=== PATIENT | female | born 1930 | race American Indian/Alaskan Native ===

== ENCOUNTER 2016-08-15 15:02 | Emergency (ER) | payer MEDICARE ==
--- NOTE | 2016-08-15 19:19 | Emergency Department Report ---
Addendum entered and electronically signed by GARY FINE PA 08/15/16 23 :45: Blank Doc - Documentation Documentation: pt requested refills on her glaucoma drops, she is nearly out, i refilled both. Original Note: ED Eye Problem HPI - General Chief complaint: Eye Problems Stated complaint: PRESSURE IN EYES/SENT BY DR Time Seen by Provider: 08/15/16 18:48 Source: patient Mode of arrival: Ambulatory Limitations: No Limitations - History of Present Illness Initial comments: 86-year-old female past medical history hypertension, history of glaucoma, presents with complaint of episode of painless vision loss to right eye which occurred last night. Patient states that she took a nap at approximately 3 PM and woke up at approximately 8 PM last night with symptoms of loss of vision in right lower peripheral visual field. Patient states that she did not experience any headache no slurred speech no nausea no vomiting. Patient denies any head trauma whatsoever. Patient states that this lasted between 8 and 10 PM yesterday and then spontaneously resolved. Patient went to her crew chief Dr. Simeon this morning was examined her I and referred her to vascular surgery at [place] for concern of amaurosis fugax. Patient did not want to go to [place] so came to [facility]. Patient awake alert and oriented 3 not in any acute distress accompanied by family. Patient denies any symptoms right now. As per patient's family she seems to be in her usual state of health and behavior. Not occurred to her before. States that she does not have any vision loss at this moment only slightly blurry vision right eye. Eyes any pain or any floaters. Eyes any foreign body sensation in right eye. No recent eye surgeries. Patient states she has had cataract surgery and surgery for glaucoma in the past. States she is using her glaucoma drops consistently. Eyes any discharge from the eye no crusting of the lids chief complaint: vision change Onset/Timin -: days(s) Onset Description: sudden Location: right eye Place: home If Injury: none Eye Symptoms: decreased vision Associated Symptoms: none Treatments Prior to Arrival: other (Patient saw crew chief Dr. Simeon who referred her to vascular Surgery at [place]) - Related Data Home Medications Medication Instructions Recorded Confirmed Last Taken ALBUTEROL Inhaler [ProAir HFA 2 puff PO Q4HR 01/01/16 01/01/16 Unknown Inhaler] Brimonidine/Timolol 0.2-0.5% 1 drops OP Q12H 01/01/16 01/01/16 Unknown [Combigan 0.2-0.5%] LORazepam [Ativan] 0.5 mg PO Q6H PRN 01/01/16 01/01/16 Unknown Potassium Chloride 10 meq PO QDAY 01/01/16 01/01/16 Unknown Ranitidine HCl [Zantac 150 MG TAB] 150 mg PO BID 01/01/16 01/01/16 Unknown metFORMIN [Glucophage] 500 mg PO BID 01/01/16 01/01/16 Unknown Previous Rx's Medication Instructions Recorded Last Taken Type Aspirin EC [Aspirin Enteric Coated 325 mg PO QDAY #30 tablet. 08/15/16 Unknown Rx TAB] Allergies Allergy/AdvReac Type Severity Reaction Status Date / Time shellfish derived Allergy Swelling Verified 08/15/16 15:42 ED Review of Systems ROS: Stated complaint: PRESSURE IN EYES/SENT BY Other details as noted in HPI Constitutional: denies: chills, fever Eyes: as per HPI, vision change (temporary vision loss last night between 8 and 10 PM which spontaneously resolved). denies: eye pain, eye discharge ENT: denies: ear pain, throat pain Respiratory: denies: cough, shortness of breath, wheezing Cardiovascular: denies: chest pain, palpitations Endocrine: no symptoms reported Gastrointestinal: denies: abdominal pain, nausea, diarrhea Genitourinary: denies: urgency, dysuria, discharge Musculoskeletal: denies: back pain, joint swelling, arthralgia Skin: denies: rash, lesions Neurological: denies: headache, weakness, paresthesias Psychiatric: denies: anxiety, depression Hematological/Lymphatic: denies: easy bleeding, easy bruising ED Past Medical Hx - Past Medical History Hx Hypertension: Yes Hx Diabetes: Yes Hx Asthma: Yes Additional medical history: DIVERTICULLITIS - Social History Smoking Status: Never Smoker - Medications Home Medications: Home Medications Medication Instructions Recorded Confirmed Last Taken Type ALBUTEROL Inhaler [ProAir HFA 2 puff PO Q4HR 01/01/16 01/01/16 Unknown History Inhaler] Brimonidine/Timolol 0.2-0.5% 1 drops OP Q12H 01/01/16 01/01/16 Unknown History [Combigan 0.2-0.5%] LORazepam [Ativan] 0.5 mg PO Q6H PRN 01/01/16 01/01/16 Unknown History Potassium Chloride 10 meq PO QDAY 01/01/16 01/01/16 Unknown History Ranitidine HCl [Zantac 150 MG TAB] 150 mg PO BID 01/01/16 01/01/16 Unknown History metFORMIN [Glucophage] 500 mg PO BID 01/01/16 01/01/16 Unknown History Aspirin EC [Aspirin Enteric Coated 325 mg PO QDAY #30 tablet. 08/15/16 Unknown Rx TAB] ED Physical Exam - General Limitations: No Limitations General appearance: alert, in no apparent distress - Head Head exam: Present: atraumatic, normocephalic - Eye Eye exam: Present: normal appearance - Expanded Eye Exam Expanded Eyelids: Normal Inspection: Left Pupils: Regular, Round: Bilateral, Reactive: Bilateral Sclera/Conjunctival: Normal Inspection: Bilateral, Injection: Bilateral Anterior chamber: Normal Inspection: Bilateral Visual acuity (R) = 20/: 100 Visual acuity (L) = 20/: 40 With correction: No IOP (R) in mmH (measured x3 times, 13, 14, 14) IOP (L) in mmH (meaqsured x3 times, 13, 13, 14) IOP measured with: Tonopen - ENT ENT exam: Present: mucous membranes moist - Neck Neck exam: Present: normal inspection - Respiratory Respiratory exam: Present: normal lung sounds bilaterally. Absent: respiratory distress - Cardiovascular Cardiovascular Exam: Present: regular rate, normal rhythm. Absent: systolic murmur, diastolic murmur, rubs, gallop - GI/Abdominal GI/Abdominal exam: Present: soft, normal bowel sounds - Extremities Exam Extremities exam: Present: normal inspection - Back Exam Back exam: Present: normal inspection - Neurological Exam Neurological exam: Present: alert, oriented X3 - Psychiatric Psychiatric exam: Present: normal affect, normal mood - Skin Skin exam: Present: warm, dry, intact, normal color. Absent: rash ED Course Vital Signs 08/15/16 15:42 Temperature 98.7 F Pulse Rate 78 Respiratory 20 Rate Blood Pressure 132/67 O2 Sat by Pulse 98 Oximetry ED Medical Decision Making - Lab Data Result diagrams: 08/15/16 21:10 08/15/16 21:10 - Medical Decision Making A/P: Amaurosis fugax, transient monocular vision loss 1-I discussed case with Dr. Isaacs and Dr. Rahman or guarding my clinical concern for amaurosis fugax. I called Dr. Simeon [phone] and discussed case with him, he is also concerned for AF and told me he had referred pt to [place] vascular surgeon dr. herman for furthe testing. As per both attendings as patient 's vision loss has spontaneously abated and not returned and given patient's age no indication for CTA at this time. Patient already had evaluation by her crew chief Dr. Simeon who had originally referred her to vascular surgery at [facility] with a Dr. Hunt [email or web address]. I advised patient with her family at bedside to follow-up with her original referral as soon as possible for further outpatient workup related to amaurosis fugax. Patient may require carotid artery ultrasounds or MRIs. As per both of my ED attendings no indication for further emergent imaging at this time. 2-patient had normal ESR and CRP. IOP right eye checked x3 14, left eye 13. Noncontrast CAT scan of the head shows no ischemia. Patient does not have any overt clinical symptoms of acute CVA, no slurred speech no upper or lower extremity weakness, and no pronator drift and no facial paresis. Denies any current vision symptoms in her right eye, the vision loss has spontaneously abated and vision loss has not returned since last night. 3-after discussing case with Dr. Rahman I will start patient on daily aspirin 325mg until she can be assessed by outpt neurology and vascular surgery. 5- ABCD2 Score 4 points Per the validation study, 4-5 points: Moderate Risk 2-Day Stroke Risk: 4.1% 7- Day Stroke Risk: 5.9% 90-Day Stroke Risk: 9.8% 4-I reinforced importance of outpatient ophthalmology, neurology and vascular surgery follow-up to patient and patient's family to avoid any permanent vision loss and some mitigate risk of CVA Critical care attestation.: If time is entered above; I have spent that time in minutes in the direct care of this critically ill patient, excluding procedure time. ED Disposition Clinical Impression: Amaurosis fugax of right eye Transient monocular blindness Qualifiers: Laterality: right Qualified Code(s): H53.121 - Transient visual loss, right eye Disposition: DISCHARGED TO HOME OR SELFCARE Is pt being admited?: No Does the pt Need Aspirin: Yes Condition: Stable Instructions: Transient Ischemic Attack (ED) Prescriptions: Aspirin EC [Aspirin Enteric Coated TAB] 325 mg PO QDAY #30 tablet.dr Referrals: EDILSON SIMEON MD [Primary Care Provider] - 3-5 Days ARELY ADEN MD [Staff Physician] - 3-5 Days KRUPA EDWARDS MD [Staff Physician] - 3-5 Days Forms: Accompanied Note Time of Disposition: 23:19
[2016-08-15 21:42] LABS: Basophils % (Auto) 0.4 % (0.0-1.8); Eosinophils % (Auto) 1.7 % (0.0-4.3); Hematocrit 38.2 % (30.3-42.9); Hemoglobin 12.3 gm/dl (10.1-14.3); Mean Corpuscular HGB Conc 32 % (30-34); Mean Corpuscular Hemoglobin 27 pg (28-32); Mean Corpuscular Volume 84 fl (79-97); Platelet Count 237 K/mm3 (140-440); Red Blood Count 4.53 M/mm3 (3.65-5.03); Red Cell Distribution Width 15.8 % (13.2-15.2); White Blood Count 6.1 K/mm3 (4.5-11.0)
[2016-08-15 21:54] LABS: INR 1.01 (0.87-1.13)
--- NOTE | 2016-08-15 22:04 | Cat Scan Report ---
FINAL REPORT EXAM: CT HEAD/BRAIN WO CON HISTORY: right sided temporary vision loss 2 hours, amoris TECHNIQUE: CT head without contrast PRIORS: None. FINDINGS: No acute intra-axial or extra-axial hemorrhage is identified. There is no evidence of midline shift or mass effect. The ventricles and sulci are within normal limits. Cain-white matter differentiation is intact. No acute parenchymal abnormalities seen. Bony calvarium is grossly intact. Visualized portions of the mastoids and paranasal sinuses are unremarkable. IMPRESSION: Negative CT head
[2016-08-15 22:25] LABS: Erythrocyte Sedimentation Rate 36 mm/Hr (0-20)
[2016-08-15 23:20] LABS: Alanine Aminotransferase 10 units/L (7-56); Albumin/Globulin Ratio 0.9 %; Alkaline Phosphatase 89 units/L (35-129); Anion Gap 21 mmol/L; BUN/Creatinine Ratio 18.33; Bilirubin,Total 0.3 mg/dL (0.1-1.2); Blood Urea Nitrogen 11 mg/dL (7-17); Calcium 9.4 mg/dL (8.4-10.2); Carbon Dioxide 24 mmol/L (22-30); Chloride 101.7 mmol/L (98-107); Glucose 134 mg/dL (65-100); Potassium 3.6 mmol/L (3.6-5.0); Sodium 143 mmol/L (137-145); Total Protein 8.3 g/dL (6.3-8.2)
[2016-08-15] MEDS ORDERED: BABY ASPIRIN PO ONE (23:22)
[2016-08-15 23:29] LABS: Bilirubin,Direct < 0.2 mg/dL (0-0.2); Bilirubin,Indirect 0.1 mg/dL
[2016-08-15 23:57] VITALS: BP 130/77
== END 2016-08-16 | disposition home or self-care (01) ==
LOC: ED 15:02
DX: H53.121 Transient visual loss, right eye (principal); G45.3 Amaurosis fugax; I10 Essential (primary) hypertension; J45.909 Unspecified asthma, uncomplicated; E11.9 Type 2 diabetes mellitus without complications; Z79.82 Long term (current) use of aspirin; Z91.013 Allergy to seafood
CPT/HCPCS: 36415; 70450; 80048; 80074; 82550; 85025; 85610; 85652; 86140

== ENCOUNTER 2016-08-20 03:29 | Inpatient (IN) | payer MEDICARE ==
[2016-08-20] MEDS ORDERED: NACL 0.9% 1000 ML 1,000 ML IV ONE (03:45)
[2016-08-20 05:22] LABS: Basophils % (Auto) 0.4 % (0.0-1.8); Eosinophils % (Auto) 1.5 % (0.0-4.3); Hematocrit 34.2 % (30.3-42.9); Hemoglobin 11.2 gm/dl (10.1-14.3); Mean Corpuscular HGB Conc 33 % (30-34); Mean Corpuscular Hemoglobin 27 pg (28-32); Mean Corpuscular Volume 83 fl (79-97); Platelet Count 205 K/mm3 (140-440); Red Blood Count 4.12 M/mm3 (3.65-5.03); White Blood Count 5.8 K/mm3 (4.5-11.0)
[2016-08-20 05:35] LABS: INR 1.05 (0.87-1.13)
[2016-08-20 05:36] LABS: Partial Thromboplastin Time 26.4 Sec. (24.2-36.6)
[2016-08-20 05:41] LABS: Alanine Aminotransferase 9 units/L (7-56); Albumin 3.9 g/dL (3.9-5); Albumin/Globulin Ratio 1.1 %; Alkaline Phosphatase 96 units/L (35-129); Bilirubin,Total 0.2 mg/dL (0.1-1.2); Blood Urea Nitrogen 12 mg/dL (7-17); Calcium 8.9 mg/dL (8.4-10.2); Carbon Dioxide 26 mmol/L (22-30); Glucose 154 mg/dL (65-100); Lipase 25 units/L (13-60); Potassium 3.8 mmol/L (3.6-5.0); Sodium 145 mmol/L (137-145); Total Protein 7.3 g/dL (6.3-8.2)
[2016-08-20 05:42] LABS: Anion Gap 19 mmol/L
[2016-08-20 06:26] LABS: Bacteria,Urine 1+ /HPF (Negative); Bilirubin,Urine NEG (Negative); Blood,Urine SM (Negative); Ketones,Urine NEG (Negative); Leukocyte Esterase,Urine NEG (Negative); Mucus,Urine 2+ /HPF; Nitrite,Urine NEG (Negative); Protein,Urine <15 mg/dL mg/dL (Negative); Urobilinogen,Urine < 2.0 mg/dL (<2.0)
--- NOTE | 2016-08-20 09:00 | Emergency Department Report ---
HPI - General Chief Complaint: GI Bleed Time Seen by Provider: 08/20/16 08:51 - HPI HPI: Chief complaint: Rectal bleeding HPI: Patient is a 86-year-old female with a history of diverticular rectal bleeding in the past who has been having episodes of amaurosis fugax and was placed on aspirin. Patient took a regular strength coated aspirin yesterday for the first time and woke up at 2:00 this morning with rectal bleeding. Patient had 2 episodes of bleeding at home and has had 5 episodes here. Patient does not have any dizziness or abdominal pain. Mode of arrival: private car Source: Patient ,old chart ,family member Began: 2 am Duration: see above Context: see above Quality:pain free Severity: 0 out of 10 Improved with: nothing Worsened with: nothing Associated signs and symptoms:see above ED Past Medical Hx - Past Medical History Hx Hypertension: Yes Hx Diabetes: Yes Hx Asthma: Yes Additional medical history: DIVERTICULLITIS rectal bleeding - Surgical History Past Surgical History?: No - Social History Smoking Status: Former Smoker Substance Use Type: None - Medications Home Medications: Home Medications Medication Instructions Recorded Confirmed Last Taken Type ALBUTEROL Inhaler [ProAir HFA 2 puff PO Q4HR 01/01/16 01/01/16 Unknown History Inhaler] LORazepam [Ativan] 0.5 mg PO Q6H PRN 01/01/16 01/01/16 Unknown History Potassium Chloride 10 meq PO QDAY 01/01/16 01/01/16 Unknown History Ranitidine HCl [Zantac 150 MG TAB] 150 mg PO BID 01/01/16 01/01/16 Unknown History metFORMIN [Glucophage] 500 mg PO BID 01/01/16 01/01/16 Unknown History Aspirin EC [Aspirin Enteric Coated 325 mg PO QDAY #30 tablet. 08/15/16 Unknown Rx TAB] Brimonidine/Timolol 0.2-0.5% 1 drops OP Q12H #1 bottle 08/15/16 Unknown Rx [Combigan 0.2-0.5%] Latanoprost 0.005% [Xalatan 0.005%] 1 drops OU QHS #1 bottle 08/15/16 Unknown Rx ED Review of Systems ROS: Stated complaint: RECTAL BLEED Other details as noted in HPI ROS Constitutional: No fever ENT: No uri symptoms Cardiovascular: No chest pain Respiratory: No sob or cough GI: No nausea vomiting or diarrhea : No dysuria frequency or urgency, Skin: No rash Neuro: Patient has had several episodes of transient monocular blindness in each eye. Under the care of an roll table operator and awaiting further testing. Currently no blindness or neurologic deficit. Psych: No depression Kenneth/lymph: No edema Physical Exam - Physical Exam Vital Signs: Vital Signs 08/20/16 08/20/16 03:33 08:28 Temperature 97.9 F Pulse Rate 95 H Respiratory 18 Rate Blood Pressure 134/74 [Left] O2 Sat by Pulse 95 98 Oximetry Physical Exam: GENERAL: The patient is well-developed well-nourished . HEENT: Normocephalic. Atraumatic. Extraocular motions are intact. Patient has moist mucous membranes. NECK: Supple. No meningitic signs are noted. There is no adenopathy noted. CHEST/LUNGS: Clear to auscultation. There is no respiratory distress noted. HEART/CARDIOVASCULAR: Regular. There is no tachycardia. There is no gallop rub or murmur. ABDOMEN: Abdomen is soft, nontender. Patient has normal bowel sounds. There is no abdominal distention. Bright red blood per rectum. SKIN: There is no rash. There is no edema. There is no diaphoresis. NEURO: The patient is awake, alert, and oriented. The patient is cooperative. The patient has no focal neurologic deficits. The patient has normal speech. MUSCULOSKELETAL: There is no tenderness or deformity. There is no limitation range of motion. There is no evidence of acute injury. ED Course Vital Signs 08/20/16 08/20/16 03:33 08:28 Temperature 97.9 F Pulse Rate 95 H Respiratory 18 Rate Blood Pressure 134/74 [Left] O2 Sat by Pulse 95 98 Oximetry - Reevaluation(s) Reevaluation #1: 08/20/16 09:04 Patient will be admitted to the hospitalist with consultation with GI. Reevaluation #2: 08/20/16 09:[address] Ac Tejeda who will consult on the patient. ED Medical Decision Making - Lab Data Result diagrams: 08/20/16 04:47 08/20/16 04:47 Laboratory Tests 08/20/16 08/20/16 04:47 Unknown PT 13.6 INR 1.05 APTT 26.4 Ur Leukocyte Esterase Neg Urine WBC (Auto) 3.0 Urine RBC (Auto) 1.0 U Epithel Cells (Auto) 22.0 H Urine Bacteria (Auto) 1+ Hyaline Casts 56 Urine Mucus 2+ - EKG Data -: EKG Interpreted by Me EKG shows normal: sinus rhythm Rate: normal (66) - EKG Data When compared to previous EKG there are: no significant change Interpretation: normal EKG Critical care attestation.: If time is entered above; I have spent that time in minutes in the direct care of this critically ill patient, excluding procedure time. ED Disposition Clinical Impression: Lower GI bleed Disposition: OP ADMITTED IP TO THIS HOSP Is pt being admited?: Yes Does the pt Need Aspirin: No Condition: Fair Forms: Accompanied Note Time of Disposition: 09:08 (admit to the hospitalist)
--- NOTE | 2016-08-20 09:27 | Admit Criteria Form ---
Admission Criteria Documentation: GASTROINTESTINAL BLEEDING, LOWER Clinical Indications for Admission to Inpatient Care ( Place 'X' for any and all applicable criteria): Admission is indicated for ANY ONE of the following(1)(2)(3)(4)(5): [ X]I. Active gross bleeding per rectum [ ]II. Inpatient admission required rather than observation care (Also use Gastrointestinal Bleeding, Lower: Observation Care as appropriate) because of ANY ONE of the following: [ ]a) Hemodynamic instability that is severe or persistent [ ]b) Anemia requiring inpatient admission as indicated by ALL of the following: [ ]1) Presence of significant clinical finding indicated by ANY ONE of the following: [ ]A. Tachycardia for age [ ]B. Orthostatic vital sign changes [ ]C. Cognitive impairment [ ]D. Heart failure [ ]E. Chest pain [ ]F. Exertional dyspnea [ ]G. Other findings suggesting inadequate perfusion (eg, peripheral or myocardial ischemia, end organ dysfunction) [ ]2) Initial (eg, emergency department, observation care) treatment with transfusion or volume replacement is judged inappropriate (due to severity of the finding) or has been ineffective [ ]c) Severe pain requiring acute inpatient management [ ]d) Absent bowel sounds with complete ileus [ ]e) Signs of intestinal obstruction or peritonitis [A] [ ]f) High-risk low platelet count [ ]g) Severe electrolyte abnormalities requiring inpatient care [ ]h) Acute renal failure [ ]i) High fever or infection requiring inpatient admission as indicated by ANY ONE of the following(8)(9): [ ]1) Appropriate outpatient or observation care antimicrobial treatment unavailable, not effective, or not feasible Documented bacteremia [ ]2) Documented bacteremia [ ]3) Temperature greater than 104.9 degrees F ( 40.5 degrees C) (oral) [ ]4) Temperature greater than 103.1 degrees F ( 39.5 degrees C) (oral) or less than 96.8 degrees F (36 degrees C) (rectal) that does not respond to all emergency treatment measures [ ]j) IV fluid to replace significant ongoing losses ( greater than 3 L/m2 per day) [ ]k) Immediate inpatient surgery needed [ ]l) Parenteral nutrition regimen that must be implemented on inpatient basis [ ]m) Other condition, treatment or monitoring requiring inpatient admission [ ]III. Unstable comorbid illness (renal, hepatic, pulmonary, hematologic, neurologic, or cardiac) [ ]IV. Failure to control bleeding after colonoscopy [ ]V. Coagulopathy [ ]. Suspected or known ischemic colitis(6) [ ]VII. Previous aortic graft placement or known aortic aneurysm Extended stay beyond goal length of stay may be needed for(3)(4)(28): [ ]a) Emergency surgery [ ]b) Coagulation abnormalities(26) [ ]c) Recurrent or persistent bleeding, continued vital sign instability(27)( 28) [ ]d) Active comorbidities (eg, renal insufficiency, heart failure, pre- existing liver disease) The original [employer] content created by [employer] has been revised. The portions of the content which have been revised are identified through the use of italic text or in bold, and [facility] has neither reviewed nor approved the modified material. All other unmodified content is copyright [facility] [employer]. Please see references footnoted in the original [employer] edition 2016 Admission Criteria Met: Yes
[2016-08-20] MEDS ORDERED: D50W (25GM) IV PRN (10:03)
[2016-08-20] MEDS ORDERED: ATIVAN PO PRN (10:11)
--- NOTE | 2016-08-20 10:40 | Gastroenterology Consultation ---
History of Present Illness - Reason for Consult Consult date: 08/20/16 LGI bleeding Requesting physician: HANANE ARCOS - History of Present Illness The patient is an 86-year-old female with a history of prior lower GI bleeding approximately 8 or 9 months ago at which time she was hospitalized here. She reports having diverticulosis found by colonoscopy but had persistent bleeding which required tempted therapeutic angiography. Patient had stopped by the time of angiography and did not require embolization nor subsequent surgery. She had a repeat bleeding event 2 months later for which she was hospitalized in [place]. He was managed conservatively. Recently she developed amaurosis fugax and was started on full dose aspirin therapy last week. She began passing sizable amounts of bright red blood and clots approximately 2 AM today. He denies any abdominal pain nausea vomiting or any fever. Past History Past Medical History: cancer (history of remote left breast cancer for which she underwent lumpectomy and radiation therapy), diabetes, hypertension, other ( recent amaurosis fugax) Past Surgical History: cholecystectomy, hysterectomy Social history: lives with family. denies: smoking, alcohol abuse Family history: no significant family history Medications and Allergies Allergies Allergy/AdvReac Type Severity Reaction Status Date / Time shellfish derived Allergy Swelling Verified 08/15/16 15:42 Home Medications Medication Instructions Recorded Confirmed Last Taken Type ALBUTEROL Inhaler [ProAir HFA 2 puff PO Q4HR 01/01/16 08/20/16 08/19/16 History Inhaler] LORazepam [Ativan] 0.5 mg PO Q6H PRN 01/01/16 08/20/16 08/19/16 History Potassium Chloride 10 meq PO QDAY 01/01/16 08/20/16 08/19/16 History Ranitidine HCl [Zantac 150 MG TAB] 150 mg PO BID 01/01/16 08/20/16 08/19/16 History metFORMIN [Glucophage] 500 mg PO BID 01/01/16 08/20/16 08/19/16 History Aspirin EC [Aspirin Enteric Coated 325 mg PO QDAY #30 tablet. 08/15/1608/19/16 Rx TAB] Brimonidine/Timolol 0.2-0.5% 1 drops OP Q12H #1 bottle 08/15/16 08/20/16 Rx [Combigan 0.2-0.5%] Latanoprost 0.005% [Xalatan 0.005%] 1 drops OU QHS #1 bottle 08/15/16 08/20/16 08/19/16 Rx Glimepiride [Amaryl] 2 mg PO QAM 08/20/16 08/20/16 08/19/16 History amLODIPine [Norvasc] 5 mg PO DAILY 08/20/16 08/20/16 08/19/16 History Active Meds: Active Medications Albuterol (Proventil) 2.5 mg IH Q4HRT [facility] Amlodipine Besylate (Norvasc) 5 mg PO DAILY [facility] Dextrose (D50w (25gm)) 50 ml IV PRN PRN PRN Reason: Hypoglycemia Insulin Aspart (Novolog) 0 units SUB-Q Q4HR [facility] PRN Reason: Protocol Lorazepam (Ativan) 0.5 mg PO Q6H PRN PRN Reason: Anxiety Pantoprazole Sodium (Protonix) 40 mg IV QDAY [facility] Review of Systems - Review of Systems Constitutional: no weight loss, no weight gain, no fever, no chills Eyes: no change in vision Ears, Nose, Throat: no decreased hearing, no difficulty swallowing, no epistaxis Breasts: deferred Cardiovascular: no chest pain, no edema, no rapid/irregular heart beat, no shortness of breath Respiratory: no cough, no shortness of breath, no wheezing, no home oxygen Gastrointestinal: hematochezia, no abdominal pain, no nausea, no vomiting, no diarrhea, no constipation, no hematemesis, no heartburn Rectal: no pain Female Genitourinary: deferred Musculoskeletal: no gait dysfunction, no joint pain, no muscle pain Integumentary: no rash, no pruritis, no jaundice Neurological: no head injury, no paralysis Psychiatric: no anxiety, no memory loss, no change in sleep habits, no change in appetite, no depression Endocrine: no cold intolerance, no heat intolerance Hematologic/Lymphatic: no easy bruising, no easy bleeding Allergic/Immunologic: no wheezing Exam - Constitutional Vital Signs: Temp Pulse Resp BP Pulse Ox 97.9 F 95 H 18 134/74 98 08/20/16 03:33 08/20/16 08:28 08/20/16 08:28 08/20/16 08:28 08/20/16 08:28 General appearance: no acute distress, well-nourished - EENT Eyes: PERRL ENT: hearing intact, clear oral mucosa, dentition normal - Neck Neck: supple, normal ROM, no masses or JVD - Respiratory Respiratory effort: normal Respiratory: bilateral: CTA - Breasts Breasts: deferred - Cardiovascular Rhythm: regular Heart Sounds: Present: S1 & S2. Absent: gallop, rub Extremities: pulses intact, No edema, normal color, Full ROM - Gastrointestinal General gastrointestinal: Present: soft, non-tender, non-distended, normal bowel sounds. Absent: hepatomegaly, splenomegaly, mass Rectal Exam: deferred - Genitourinary Female Genitourinary: deferred - Integumentary Integumentary: Present: clear, warm, dry - Neurologic Neurological: alert and oriented x3 - Labs CBC & Chem 7: 08/20/16 04:47 08/20/16 04:47 Lab Results: Laboratory Results - last 24 hr 08/20/16 08/20/16 08/20/16 04:47 04:47 04:47 WBC 5.8 RBC 4.12 Hgb 11.2 Hct 34.2 MCV 83 MCH 27 L MCHC 33 RDW 16.0 H Plt Count 205 Lymph % (Auto) 25.1 [place] % (Auto) 7.3 Eos % (Auto) 1.5 Baso % (Auto) 0.4 Lymph # 1.5 [place] # 0.4 Eos # 0.1 Baso # 0.0 Seg Neutrophils % 65.7 Seg Neutrophils # 3.8 PT 13.6 INR 1.05 APTT 26.4 Sodium 145 Potassium 3.8 Chloride 104.0 Carbon Dioxide 26 Anion Gap 19 BUN 12 Creatinine 0.8 Estimated GFR > 60 BUN/Creatinine Ratio 15.00 Glucose 154 H Calcium 8.9 Total Bilirubin 0.2 AST 14 ALT 9 Alkaline Phosphatase 96 Total Protein 7.3 Albumin 3.9 Albumin/Globulin Ratio 1.1 Lipase 25 Urine Color Urine Turbidity Urine pH Ur Specific [place] Urine Protein Urine Glucose (UA) Urine Ketones Urine Blood Urine Nitrite Urine Bilirubin Urine Urobilinogen Ur Leukocyte Esterase Urine WBC (Auto) Urine RBC (Auto) U Epithel Cells (Auto) Urine Bacteria (Auto) Hyaline Casts Urine Mucus Blood Type Antibody Screen 08/20/16 08/20/16 04:47 Unknown WBC RBC Hgb Hct MCV MCH MCHC RDW Plt Count Lymph % (Auto) [place] % (Auto) Eos % (Auto) Baso % (Auto) Lymph # [place] # Eos # Baso # Seg Neutrophils % Seg Neutrophils # PT INR APTT Sodium Potassium Chloride Carbon Dioxide Anion Gap BUN Creatinine Estimated GFR BUN/Creatinine Ratio Glucose Calcium Total Bilirubin AST ALT Alkaline Phosphatase Total Protein Albumin Albumin/Globulin Ratio Lipase Urine Color Yellow Urine Turbidity Slightly-cloudy Urine pH 5.0 Ur Specific [place] 1.020 Urine Protein <15 mg/dl Urine Glucose (UA) Neg Urine Ketones Neg Urine Blood Sm Urine Nitrite Neg Urine Bilirubin Neg Urine Urobilinogen < 2.0 Ur Leukocyte Esterase Neg Urine WBC (Auto) 3.0 Urine RBC (Auto) 1.0 U Epithel Cells (Auto) 22.0 H Urine Bacteria (Auto) 1+ Hyaline Casts 56 Urine Mucus 2+ Blood Type AB POSITIVE Antibody Screen Negative Assessment and Plan - Patient Problems (1) Lower GI bleed Current Visit: Yes Status: Acute Plan to address problem: Presently she is hemodynamically stable and is likely had a recurrent diverticular bleed. Initially, conservative management will be pursued given a known diagnosis. If bleeding should persist she will need consideration of a bleeding scan and surgical consultation and consideration of interventional radiology consultation for possible embolization. Thank you for asking me to evaluate Mrs. Suggs and participate in her care (2) Amaurosis fugax of right eye Current Visit: No Status: Acute (3) Full code status Current Visit: No Status: Acute (4) Diabetes mellitus type 2 in nonobese Current Visit: No Status: Chronic (5) Diverticulosis Current Visit: No Status: Chronic (6) HTN (hypertension) Current Visit: No Status: Chronic
[2016-08-20 11:21] LABS: Alanine Aminotransferase 9 units/L (7-56); Albumin 3.8 g/dL (3.9-5); Albumin/Globulin Ratio 1.1 %; Alkaline Phosphatase 90 units/L (35-129); BUN/Creatinine Ratio 17.77; Bilirubin,Total 0.4 mg/dL (0.1-1.2); Blood Urea Nitrogen 16 mg/dL (7-17); Calcium 8.7 mg/dL (8.4-10.2); Carbon Dioxide 24 mmol/L (22-30); Chloride 104.2 mmol/L (98-107); Glucose 152 mg/dL (65-100); Sodium 144 mmol/L (137-145); Total Protein 7.3 g/dL (6.3-8.2)
[2016-08-20] MEDS ORDERED: PROTONIX IV ONE (11:27)
[2016-08-20 11:28] LABS: Anion Gap 20 mmol/L
[2016-08-20] MEDS: NORVASC PO SCH (11:35)
[2016-08-20] MEDS: PROTONIX IV SCH (11:36)
[2016-08-20] MEDS ORDERED: PROAIR IH SCH (14:00)
[2016-08-20] MEDS: NOVOLOG SUB-Q SCH ×4 (14:00→22:11)
[2016-08-20 14:18] LABS: Hematocrit 28.4 % (30.3-42.9); Hemoglobin 9.3 gm/dl (10.1-14.3)
[2016-08-20] MEDS ORDERED: NACL 0.9% 500 ML 500 ML IV ONE (15:40)
--- NOTE | 2016-08-20 15:56 | History and Physical Report ---
History of Present Illness Date of examination: 08/20/16 Date of admission: 08/20/16 10:03 Chief complaint: Passing of bright red blood per rectum History of present illness: Patient is an 86-year-old lady who has a history of diverticular bleeding in 8- 9 months ago. Was hospitalized here and transfused with 9 units of blood. Angiography was done, however there was no embolization as bleeding had stopped. She stated that she had a colonoscopy following which she was diagnosed with diverticulosis. Two months ago, patient was in [place] and had another episode of diverticular bleed. Was managed conservatively. On general 2016, patient was diagnosed with amaurosis fugax after presented emergency department with sudden partial loss of vision on the right eye. Ophthalmology was consulted at [place] who suggested commencing the patient on an aspirin and to follow up with him. Patient was commenced on full dose aspirin therapy. At about 2 AM today patient started passing sizable amount of bright red blood per rectum. Nauseated but denies any vomiting or abdominal pain. No fever. In the emergency department patient had additional 4 bloody bowel movements. GI consult was obtained. Admission was requested. Patient remains hemodynamically stable at time of this evaluation. Hemoglobin was 11.2 with a pulse rate of 64 Past History Past Medical History: cancer (history of remote left breast cancer for which she underwent lumpectomy and radiation therapy), diabetes, hypertension, other ( recent amaurosis fugax) Past Surgical History: cholecystectomy, hysterectomy Social history: lives with family. denies: smoking, alcohol abuse Family history: no significant family history Medications and Allergies Allergies Allergy/AdvReac Type Severity Reaction Status Date / Time shellfish derived Allergy Swelling Verified 08/15/16 15:42 Home Medications Medication Instructions Recorded Confirmed Last Taken Type ALBUTEROL Inhaler [ProAir HFA 2 puff PO Q4HR 01/01/16 08/20/16 08/19/16 History Inhaler] LORazepam [Ativan] 0.5 mg PO Q6H PRN 01/01/16 08/20/16 08/19/16 History Potassium Chloride 10 meq PO QDAY 01/01/16 08/20/16 08/19/16 History Ranitidine HCl [Zantac 150 MG TAB] 150 mg PO BID 01/01/16 08/20/16 08/19/16 History metFORMIN [Glucophage] 500 mg PO BID 01/01/16 08/20/16 08/19/16 History Aspirin EC [Aspirin Enteric Coated 325 mg PO QDAY #30 tablet. 08/15/1608/19/16 Rx TAB] Brimonidine/Timolol 0.2-0.5% 1 drops OP Q12H #1 bottle 08/15/16 08/20/16 Rx [Combigan 0.2-0.5%] Latanoprost 0.005% [Xalatan 0.005%] 1 drops OU QHS #1 bottle 08/15/16 08/20/16 08/19/16 Rx Glimepiride [Amaryl] 2 mg PO QAM 08/20/16 08/20/16 08/19/16 History amLODIPine [Norvasc] 5 mg PO DAILY 08/20/16 08/20/16 08/19/16 History Active Meds: Active Medications Albuterol (Proventil) 2.5 mg IH Q4HRT [facility] Amlodipine Besylate (Norvasc) 5 mg PO DAILY [facility] Last Admin: 08/20/16 11:35 Dose: Not Given Dextrose (D50w (25gm)) 50 ml IV PRN PRN PRN Reason: Hypoglycemia Dextrose/Sodium Chloride (D5/0.45ns) 1,000 mls @ 100 mls/hr IV DIRECT [facility] Insulin Aspart (Novolog) 0 units SUB-Q Q4HR [facility] PRN Reason: Protocol Lorazepam (Ativan) 0.5 mg PO Q6H PRN PRN Reason: Anxiety Pantoprazole Sodium (Protonix) 40 mg IV QDAY [facility] Last Admin: 08/20/16 11:36 Dose: 40 mg Review of system Constitutional: Well Nouridhed and Well developed. Head: NC/ AT Eyes: Denies any visual impairments. No discharge from the eyes Nose: Denies any rhinorrhea or epistaxis Throats: Denies any post nasal drainage. Ears: Denies any hearing deficits Cardiovascular system: Denies any chest pain, shortness of breath, orthopnea, paroxysmal nocturnal dyspnea, or palpitation. Respiratory system: Denies any cough, difficulty breathing, wheezing, pleuritic chest pain, Gastrointestinal system: Denies any abdominal pain, nausea vomiting, hematemesis or melena. Neurological system: Denies any headache, slurred speech, facial droop, lateralizing weakness Genitalia system: Denies any dysuria, urinary frequency or urgency, urethral discharge Skin: No rashes, hyperpigmented spots. Hematological: Denies any cervical tenderness hemorrhages or petechia. Immunological: Denies any multiple septic spots, Lymphatic: Denies any generalized lymphadenopathy. Endocrine: Denies any polyuria, polydipsia, polyphagia. No heat or cold intolerance. Exam - Constitutional Vitals: Temp Pulse Resp BP Pulse Ox 98.0 F 64 16 120/59 99 08/20/16 12:00 08/20/16 12:53 08/20/16 11:36 08/20/16 12:00 08/20/16 11:36 General appearance: Present: no acute distress, well-nourished, other ( conjunctival pallor) - EENT Eyes: Present: PERRL ENT: hearing intact, clear oral mucosa - Neck Neck: Present: supple, normal ROM - Respiratory Respiratory effort: normal Respiratory: bilateral: CTA - Cardiovascular Heart Sounds: Present: S1 & S2. Absent: rub, click - Extremities Extremities: pulses symmetrical, No edema Peripheral Pulses: within normal limits - Abdominal General gastrointestinal: Present: soft, non-tender, non-distended, normal bowel sounds Female genitourinary: Present: normal - Integumentary Integumentary: Present: clear, warm, dry - Musculoskeletal Musculoskeletal: gait normal, strength equal bilaterally - Psychiatric Psychiatric: appropriate mood/affect, intact judgment & insight - Neurologic Neurologic: CNII-XII intact, moves all extremities Results - Labs CBC & Chem 7: 08/20/16 14:03 08/20/16 10:25 Labs: Abnormal lab results 08/20/16 08/20/16 08/20/16 Range/Units 10:25 10:25 12:19 Hgb (10.1-14.3) gm/dl Hct (30.3-42.9) % Glucose 152 H (65-100) mg/dL POC Glucose 135 H (70-105) Hemoglobin A1c 7.2 H (4-6) % Albumin 3.8 L (3.9-5) g/dL U Epithel Cells (Auto) (0-13.0) /HPF 08/20/16 08/20/16 Range/Units 14:03 Unknown Hgb 9.3 L (10.1-14.3) gm/dl Hct 28.4 L (30.3-42.9) % Glucose (65-100) mg/dL POC Glucose (70-105) Hemoglobin A1c (4-6) % Albumin (3.9-5) g/dL U Epithel Cells (Auto) 22.0 H (0-13.0) /HPF - Imaging and Cardiology EKG: report reviewed, image reviewed Assessment and Plan - Patient Problems (1) Lower GI bleed Diagnosis Date: 08/20/16 Current Visit: Yes Status: Acute Plan to address problem: Patient admitted to telemetry as she is hemodynamically stable. Will obtain serial H&H. Commence patient on IV Protonix. Check consult will be obtained. Patient had a similar compliance. Type and screen 3 units of packed red blood cell. Transfuse if hemoglobin is less than 9. Patient will placed on nothing by mouth and IV fluid. (2) Anemia due to GI blood loss Diagnosis Date: 08/20/16 Current Visit: Yes Status: Acute Plan to address problem: Serial H&H, type and crossmatch 3 units of packed red blood cell, transfuse if hemoglobin is less than 9. 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 Consistent carbohydrate diet when patient commenced oral feeding (4) Amaurosis fugax of right eye Diagnosis Date: 08/20/16 Current Visit: No Status: Acute Plan to address problem: We will hold onto. For now. Closely monitor patient's condition. (5) DVT prophylaxis Diagnosis Date: 08/20/16 Current Visit: No Status: Acute Plan to address problem: DVT prophylaxis: SCDs only. We'll avoid anticoagulation as patient is having active GI bleeding Spent 31 minutes in direct patient care. Patient remains full code. Discussed my With the patient and her daughter was at bedside during this admission process. Reviewed previous records as well as current laboratory data
[2016-08-20] MEDS: D5/0.45NS 1,000 ML IV SCH (16:06)
[2016-08-20] MEDS: PROVENTIL IH SCH ×3 (16:07→20:46)
[2016-08-21 01:03] LABS: Hematocrit 24.8 % (30.3-42.9); Hemoglobin 8.1 gm/dl (10.1-14.3)
[2016-08-21] MEDS: NOVOLOG SUB-Q SCH ×4 (02:53→18:32)
[2016-08-21] MEDS: D5/0.45NS 1,000 ML IV SCH (06:39)
[2016-08-21] MEDS: PROVENTIL IH SCH ×6 (08:31→21:32)
[2016-08-21 09:53] LABS: Hematocrit 21.5 % (30.3-42.9)
[2016-08-21 10:39] LABS: Albumin 2.3 g/dL (3.9-5); Alkaline Phosphatase 49 units/L (35-129); Anion Gap 14 mmol/L; Bilirubin,Total 0.3 mg/dL (0.1-1.2); Blood Urea Nitrogen 14 mg/dL (7-17); Calcium 6.5 mg/dL (8.4-10.2); Carbon Dioxide 22 mmol/L (22-30); Chloride 100.2 mmol/L (98-107); Potassium 3.1 mmol/L (3.6-5.0); Sodium 133 mmol/L (137-145); Total Protein 4.6 g/dL (6.3-8.2)
[2016-08-21 10:44] LABS: Alanine Aminotransferase < 5 units/L (7-56)
--- NOTE | 2016-08-21 10:57 | Gastroenterology Progress Note ---
Assessment and Plan - Patient Problems (1) Lower GI bleed Diagnosis Date: 08/20/16 Current Visit: Yes Status: Acute Plan to address problem: Falling H&H, although describes small volume bleeding. Will need transfusion given falling blood count with bleeding. Colonoscopy is planned for tomorrow. Clear liquids and prep today. (2) Amaurosis fugax of right eye Diagnosis Date: 08/20/16 Current Visit: No Status: Acute (3) Full code status Current Visit: No Status: Acute (4) Diabetes mellitus type 2 in nonobese Current Visit: No Status: Chronic (5) Diverticulosis Current Visit: No Status: Chronic (6) HTN (hypertension) Current Visit: No Status: Chronic Subjective Date of service: 08/21/16 Principal diagnosis: LGI bleeding Interval history: She reports some BRBPR over night. Small volume. Feels well overall. Objective - Constitutional Vitals: Temp Pulse Resp BP Pulse Ox 98.0 F 78 16 122/60 97 08/21/16 07:16 08/21/16 08:45 08/21/16 08:45 08/21/16 07:16 08/21/16 07:16 General appearance: no acute distress - EENT ENT: hearing intact, clear oral mucosa, dentition normal - Respiratory Respiratory effort: normal Respiratory: bilateral: CTA - Cardiovascular Rhythm: regular - Gastrointestinal General gastrointestinal: Present: soft, non-tender, non-distended, normal bowel sounds - Neurologic Neurological: alert and oriented x3 - Labs CBC & Chem 7: 08/21/16 08:34 08/21/16 09:51 Labs: Laboratory Results - last 24 hr 08/20/16 08/20/16 08/20/16 10:25 10:25 10:25 Hgb Hct Sodium 144 Potassium 4.0 Chloride 104.2 Carbon Dioxide 24 Anion Gap 20 BUN 16 Creatinine 0.9 Estimated GFR > 60 BUN/Creatinine Ratio 17.77 Glucose 152 H POC Glucose Hemoglobin A1c 7.2 H Calcium 8.7 Total Bilirubin 0.4 AST 15 ALT 9 Alkaline Phosphatase 90 Total Protein 7.3 Albumin 3.8 L Albumin/Globulin Ratio 1.1 Triglycerides 82 Cholesterol 191 LDL Cholesterol Direct 126 HDL Cholesterol 49 Cholesterol/HDL Ratio 3.89 08/20/16 08/20/16 08/20/16 12:19 14:03 23:55 Hgb 9.3 L Hct 28.4 L Sodium Potassium Chloride Carbon Dioxide Anion Gap BUN Creatinine Estimated GFR BUN/Creatinine Ratio Glucose POC Glucose 135 H 186 H Hemoglobin A1c Calcium Total Bilirubin AST ALT Alkaline Phosphatase Total Protein Albumin Albumin/Globulin Ratio Triglycerides Cholesterol LDL Cholesterol Direct HDL Cholesterol Cholesterol/HDL Ratio 08/21/16 08/21/16 08/21/16 00:42 06:00 08:34 Hgb 8.1 L 7.0 L Hct 24.8 L 21.5 L Sodium Potassium Chloride Carbon Dioxide Anion Gap BUN Creatinine Estimated GFR BUN/Creatinine Ratio Glucose POC Glucose 92 Hemoglobin A1c Calcium Total Bilirubin AST ALT Alkaline Phosphatase Total Protein Albumin Albumin/Globulin Ratio Triglycerides Cholesterol LDL Cholesterol Direct HDL Cholesterol Cholesterol/HDL Ratio 08/21/16 08/21/16 09:51 10:07 Hgb Hct Sodium 133 L D Potassium 3.1 L D Chloride 100.2 Carbon Dioxide 22 Anion Gap 14 BUN 14 Creatinine 0.8 Estimated GFR > 60 BUN/Creatinine Ratio 17.50 Glucose POC Glucose 166 H Hemoglobin A1c Calcium 6.5 L D Total Bilirubin 0.3 AST 9 ALT < 5 L Alkaline Phosphatase 49 Total Protein 4.6 L D Albumin 2.3 L Albumin/Globulin Ratio 1.0 Triglycerides Cholesterol LDL Cholesterol Direct HDL Cholesterol Cholesterol/HDL Ratio
[2016-08-21] MEDS ORDERED: NACL 0.9% 500 ML 500 ML IV ONE (10:59)
[2016-08-21 11:03] LABS: Glucose TNR mg/dL (65-100)
[2016-08-21] MEDS: PROTONIX IV SCH (11:41)
[2016-08-21] MEDS: NORVASC PO SCH (11:41)
--- NOTE | 2016-08-21 14:38 | Progress Note ---
Assessment and Plan Assessment and plan: Patient is an 86-year-old lady who has a history of diverticular bleeding in 8- 9 months ago. Was hospitalized here and transfused with 9 units of blood. Angiography was done, however there was no embolization as bleeding had stopped. She stated that she had a colonoscopy following which she was diagnosed with diverticulosis. Two months ago, patient was in [place] and had another episode of diverticular bleed. Was managed conservatively. On 2016, patient was diagnosed with amaurosis fugax after presented emergency department with sudden partial loss of vision on the right eye. Ophthalmology was consulted at [place] who suggested commencing the patient on an aspirin and to follow up with him. Patient was commenced on full dose aspirin therapy. At about 2 AM today patient started passing sizable amount of bright red blood per rectum. Nauseated but denies any vomiting or abdominal pain. No fever. In the emergency department patient had additional 4 bloody bowel movements. GI consult was obtained. Admission was requested. Patient remains hemodynamically stable at time of this evaluation. Hemoglobin was 11.2 with a pulse rate of 64 * Lower GI bleed-recurrent * Amaurosis fugax of right eye * Diabetes mellitus * Diverticulosis * Hypertension * Acute blood loss anemia Plan * Colonoscopy planned for a.m. considering recurrent bleed * Transfuse as needed * Patient was initially started on aspirin due to amaurosis Fugax- Will hold aspirin and all antiplatelets at this time. Patient will be reevaluated by ophthalmology shortly after discharge. She describes that she had a temporary loss of sight which resolved almost immediately * Continue insulin with diabetic control * Nothing by mouth after midnight for planned procedure * May require surgical or interventional radiology evaluation based on findings on colonoscopy * DVT and GI prophylaxis * Discussed with patient and family member in detail THE plans. History Interval history: Follow-up GI bleed Patient seen and examined this morning in no acute distress, reports improvement , family member at bedside Denies any chest pain, nausea, vomiting, diarrhea No fever noted blood pressure controlled No adverse events reported to me by nursing staff Hospitalist Physical - Physical exam Narrative exam: VITAL SIGNS: Reviewed. GENERAL: The patient appeared well nourished and normally developed. Vital signs as documented. HEAD: No signs of head trauma. EYES: Pupils are equal. Extraocular motions intact. EARS: Hearing grossly intact. MOUTH: Oropharynx is normal. NECK: No adenopathy, no JVD. CHEST: Chest with clear breath sounds bilaterally. No wheezes, rales, or rhonchi. CARDIAC: Regular rate and rhythm. S1 and S2, without murmurs, gallops, or rubs. VASCULAR: No Edema. Peripheral pulses normal and equal in all extremities. ABDOMEN: Soft, without detectable tenderness. No sign of distention. No rebound or guarding, and no masses palpated. Bowel Sounds normal. MUSCULOSKELETAL: Good range of motion of all major joints. Extremities without clubbing, cyanosis or edema. NEUROLOGIC EXAM: Alert and oriented x 3. No focal sensory or strength deficits. Speech normal. Follows commands. PSYCHIATRIC: Mood normal. SKIN: No rash or lesions. - Constitutional Vitals: Temp Pulse Resp BP Pulse Ox 98.4 F 81 16 123/59 100 08/21/16 11:24 08/21/16 12:00 08/21/16 12:00 08/21/16 11:41 08/21/16 11:24 General appearance: Present: no acute distress, well-nourished, other ( conjunctival pallor) Results - Labs CBC & Chem 7: 08/21/16 08:34 08/21/16 09:51 Labs: Laboratory Last Values WBC 5.8 K/mm3 (4.5-11.0) 08/20/16 04:47 RBC 4.12 M/mm3 (3.65-5.03) 08/20/16 04:47 Hgb 7.0 gm/dl (10.1-14.3) L 08/21/16 08:34 Hct 21.5 % (30.3-42.9) L 08/21/16 08:34 MCV 83 fl (79-97) 08/20/16 04:47 MCH 27 pg (28-32) L 08/20/16 04:47 MCHC 33 % (30-34) 08/20/16 04:47 RDW 16.0 % (13.2-15.2) H 08/20/16 04:47 Plt Count 205 K/mm3 (140-440) 08/20/16 04:47 Lymph % (Auto) 25.1 % (13.4-35.0) 08/20/16 04:47 [place] % (Auto) 7.3 % (0.0-7.3) 08/20/16 04:47 Eos % (Auto) 1.5 % (0.0-4.3) 08/20/16 04:47 Baso % (Auto) 0.4 % (0.0-1.8) 08/20/16 04:47 Lymph # 1.5 K/mm3 (1.2-5.4) 08/20/16 04:47 [place] # 0.4 K/mm3 (0.0-0.8) 08/20/16 04:47 Eos # 0.1 K/mm3 (0.0-0.4) 08/20/16 04:47 Baso # 0.0 K/mm3 (0.0-0.1) 08/20/16 04:47 Seg Neutrophils % 65.7 % (40.0-70.0) 08/20/16 04:47 Seg Neutrophils # 3.8 K/mm3 (1.8-7.7) 08/20/16 04:47 PT 13.6 Sec. (12.2-14.9) 08/20/16 04:47 INR 1.05 (0.87-1.13) 08/20/16 04:47 APTT 26.4 Sec. (24.2-36.6) 08/20/16 04:47 Sodium 133 mmol/L (137-145) L D 08/21/16 09:51 Potassium 3.1 mmol/L (3.6-5.0) L D 08/21/16 09:51 Chloride 100.2 mmol/L (98-107) 08/21/16 09:51 Carbon Dioxide 22 mmol/L (22-30) 08/21/16 09:51 Anion Gap 14 mmol/L 08/21/16 09:51 BUN 14 mg/dL (7-17) 08/21/16 09:51 Creatinine 0.8 mg/dL (0.7-1.2) 08/21/16 09:51 Estimated GFR > 60 ml/min 08/21/16 09:51 BUN/Creatinine Ratio 17.50 % 08/21/16 09:51 Glucose TNR 08/21/16 09:51 POC Glucose 166 (70-105) H 08/21/16 10:07 Hemoglobin A1c 7.2 % (4-6) H 08/20/16 10:25 Calcium 6.5 mg/dL (8.4-10.2) L D 08/21/16 09:51 Total Bilirubin 0.3 mg/dL (0.1-1.2) 08/21/16 09:51 AST 9 units/L (5-40) 08/21/16 09:51 ALT < 5 units/L (7-56) L 08/21/16 09:51 Alkaline Phosphatase 49 units/L (35-129) 08/21/16 09:51 Total Protein 4.6 g/dL (6.3-8.2) L D 08/21/16 09:51 Albumin 2.3 g/dL (3.9-5) L 08/21/16 09:51 Albumin/Globulin Ratio 1.0 % 08/21/16 09:51 Triglycerides 82 mg/dL (2-149) 08/20/16 10:25 Cholesterol 191 mg/dL (50-199) 08/20/16 10:25 LDL Cholesterol Direct 126 mg/dL (50-130) 08/20/16 10:25 HDL Cholesterol 49 mg/dL (40-59) 08/20/16 10:25 Cholesterol/HDL Ratio 3.89 % 08/20/16 10:25 Lipase 25 units/L (13-60) 08/20/16 04:47 Urine Color Yellow (Yellow) 08/20/16 Unknown Urine Turbidity Slightly-cloudy (Clear) 08/20/16 Unknown Urine pH 5.0 (5.0-7.0) 08/20/16 Unknown Ur Specific [place] 1.020 (1.003-1.030) 08/20/16 Unknown Urine Protein <15 mg/dl mg/dL (Negative) 08/20/16 Unknown Urine Glucose (UA) Neg mg/dL (Negative) 08/20/16 Unknown Urine Ketones Neg mg/dL (Negative) 08/20/16 Unknown Urine Blood Sm (Negative) 08/20/16 Unknown Urine Nitrite Neg (Negative) 08/20/16 Unknown Urine Bilirubin Neg (Negative) 08/20/16 Unknown Urine Urobilinogen < 2.0 mg/dL (<2.0) 08/20/16 Unknown Ur Leukocyte Esterase Neg (Negative) 08/20/16 Unknown Urine WBC (Auto) 3.0 /HPF (0.0-6.0) 08/20/16 Unknown Urine RBC (Auto) 1.0 /HPF (0.0-6.0) 08/20/16 Unknown U Epithel Cells (Auto) 22.0 /HPF (0-13.0) H 08/20/16 Unknown Urine Bacteria (Auto) 1+ /HPF (Negative) 08/20/16 Unknown Hyaline Casts 56 /LPF 08/20/16 Unknown Urine Mucus 2+ /HPF 08/20/16 Unknown Urine Creatinine 234.4 mg/dL (0.1-20.0) H 08/20/16 10:03 Urine Microalbumin 3.1 mg/dL (0.1-34.0) 08/20/16 10:03 Microalb/Creat Ratio 13.2 ug/mg 08/20/16 10:03 Blood Type AB POSITIVE 08/20/16 04:47 Antibody Screen Negative 08/20/16 04:47 Crossmatch See Detail 08/20/16 04:47
[2016-08-21 15:05] LABS: Hematocrit 23.5 % (30.3-42.9); Hemoglobin 7.7 gm/dl (10.1-14.3)
[2016-08-21] MEDS ORDERED: K-DUR PO ONE ×2 (15:39→19:00)
[2016-08-21 17:14] LABS: Basophils % (Auto) 0.2 % (0.0-1.8); Hematocrit 21.5 % (30.3-42.9); Mean Corpuscular HGB Conc 32 % (30-34); Mean Corpuscular Hemoglobin 28 pg (28-32); Mean Corpuscular Volume 86 fl (79-97); Platelet Count 128 K/mm3 (140-440); Red Cell Distribution Width 16.4 % (13.2-15.2); White Blood Count 5.8 K/mm3 (4.5-11.0)
[2016-08-21] MEDS: GOLYTELY PO SCH (18:09)
[2016-08-22 00:27] LABS: Hematocrit 32.6 % (30.3-42.9); Hemoglobin 10.3 gm/dl (10.1-14.3)
[2016-08-22] MEDS ORDERED: NACL 0.9% 250ML 250 ML ONE (01:03)
[2016-08-22] MEDS: NOVOLOG SUB-Q SCH ×3 (02:48→14:00)
[2016-08-22] MEDS ORDERED: NACL 0.9% 250ML 250 ML IV ONE (03:03)
[2016-08-22] MEDS: GOLYTELY PO SCH (04:29)
[2016-08-22 07:04] LABS: Basophils % (Auto) 0.4 % (0.0-1.8); Eosinophils % (Auto) 0.7 % (0.0-4.3); Hematocrit 31.4 % (30.3-42.9); Hemoglobin 10.4 gm/dl (10.1-14.3); Mean Corpuscular HGB Conc 33 % (30-34); Mean Corpuscular Hemoglobin 28 pg (28-32); Mean Corpuscular Volume 84 fl (79-97); Platelet Count 160 K/mm3 (140-440); Red Blood Count 3.75 M/mm3 (3.65-5.03); Red Cell Distribution Width 15.2 % (13.2-15.2); White Blood Count 6.6 K/mm3 (4.5-11.0)
[2016-08-22 07:17] LABS: Anion Gap 17 mmol/L; BUN/Creatinine Ratio 8.57; Blood Urea Nitrogen 6 mg/dL (7-17); Calcium 8.7 mg/dL (8.4-10.2); Carbon Dioxide 28 mmol/L (22-30); Chloride 108.5 mmol/L (98-107); Glucose 147 mg/dL (65-100); Potassium 3.6 mmol/L (3.6-5.0); Sodium 150 mmol/L (137-145)
[2016-08-22] MEDS: PROVENTIL IH SCH ×3 (08:10→14:07)
[2016-08-22] MEDS ORDERED: PEPCID PO SCH (10:00)
[2016-08-22] MEDS ORDERED: NACL 0.9% 1000 ML 1,000 ML ONE (10:48)
[2016-08-22] MEDS ORDERED: NACL 0.9% 1000 ML 1,000 ML IV SCH (11:00)
--- NOTE | 2016-08-22 11:01 | Discharge Summary ---
Providers - Providers Date of Admission: 08/20/16 10:03 Date of discharge: 08/22/16 Attending physician: MITUL KNOTT MD Primary care physician: [employer] Hospitalization Reason for admission: GI BLEED Condition: Stable Hospital course: Patient is an 86-year-old lady who has a history of diverticular bleeding in 8- 9 months ago. Was hospitalized here and transfused with 9 units of blood. Angiography was done, however there was no embolization as bleeding had stopped. She stated that she had a colonoscopy following which she was diagnosed with diverticulosis. Two months ago, patient was in [place] and had another episode of diverticular bleed. Was managed conservatively. On general 2016, patient was diagnosed with amaurosis fugax after presented emergency department with sudden partial loss of vision on the right eye. Ophthalmology was consulted at [place] who suggested commencing the patient on an aspirin and to follow up with him. Patient was commenced on full dose aspirin therapy. At about 2 AM today patient started passing sizable amount of bright red blood per rectum. Nauseated but denies any vomiting or abdominal pain. No fever. In the emergency department patient had additional 4 bloody bowel movements. GI consult was obtained. Admission was requested. Patient remains hemodynamically stable at time of this evaluation. Hemoglobin was 11.2 with a pulse rate of 64. Patient was transfused a unit of packed red blood cells with appropriate response noted. She did proceed to have colonoscopy which revealed Extensive diverticulosis throughout the entire colon with no active bleeding. Discussed with the family as GI rope commenced no aspirin for 7 days. And when start an aspirin to start with the baby aspirin. Her condition at this time is stable she is to follow with GI outpatient. Discharge diagnosis * Lower GI bleed-recurrent * Diverticulosis * Amaurosis fugax of right eye * Diabetes mellitus * Diverticulosis * Hypertension * Acute blood loss anemia Disposition: DISCHARGED TO HOME OR SELFCARE Time spent for discharge: 35 MINS Core Measure Documentation - Palliative Care Palliative Care/ Comfort Measures: Not Applicable - Core Measures Any of the following diagnoses?: none - VTE Discharge Requirements Deep Vein Thrombosis/Pulmonary Embolism Present on Admission: No Exam - Physical Exam Narrative exam: VITAL SIGNS: Reviewed. GENERAL: The patient appeared well nourished and normally developed. Vital signs as documented. HEAD: No signs of head trauma. EYES: Pupils are equal. Extraocular motions intact. EARS: Hearing grossly intact. MOUTH: Oropharynx is normal. NECK: No adenopathy, no JVD. CHEST: Chest with clear breath sounds bilaterally. No wheezes, rales, or rhonchi. CARDIAC: Regular rate and rhythm. S1 and S2, without murmurs, gallops, or rubs. VASCULAR: No Edema. Peripheral pulses normal and equal in all extremities. ABDOMEN: Soft, without detectable tenderness. No sign of distention. No rebound or guarding, and no masses palpated. Bowel Sounds normal. MUSCULOSKELETAL: Good range of motion of all major joints. Extremities without clubbing, cyanosis or edema. NEUROLOGIC EXAM: Alert and oriented x 3. No focal sensory or strength deficits. Speech normal. Follows commands. PSYCHIATRIC: Mood normal. SKIN: No rash or lesions. - Constitutional Vitals: Temp Pulse Resp BP Pulse Ox 97.2 F L 77 20 121/57 98 08/22/16 05:25 08/22/16 05:25 08/22/16 05:25 08/22/16 05:25 08/22/16 05:25 Plan Activity: advance as tolerated, fall precautions Diet: diabetic Special Instructions: record daily weights, record daily BP diary, record blood sugar diary Follow up with: [facility] [Provider Group] - 7 Days PRIMARY CARE, [Primary Care Provider] - 3-5 Days Forms: Accompanied Note Prescriptions: Aspirin [Adult Low Dose Aspirin EC] 81 mg PO DAILY #30 tablet.
[2016-08-22] MEDS ORDERED: WATER FOR IRRIG STERILE IR ONE (11:23)
[2016-08-22] MEDS ORDERED: DIPRIVAN 10 MG/ML IV ONE ×2 (12:04)
--- NOTE | 2016-08-22 12:40 | Anesthesia Consultation ---
Anesthesia Consult and Med Hx - Airway Anesthetic Teeth Evaluation: Dentures ROM Head & Neck: Adequate Mental/Hyoid Distance: Adequate Mallampati Class: Class II Intubation Access Assessment: Probably Good - Pulmonary Exam CTA: Yes - Cardiac Exam Cardiac Exam: RRR - Pre-Operative Health Status ASA Pre-Surgery Classification: ASA3 Proposed Anesthetic Plan: MAC - Pulmonary Hx Asthma: Yes - Cardiovascular System Hx Hypertension: Yes - Endocrine Hx Insulin Dependent Diabetes: Yes Hx Non-Insulin Dependent Diabetes: No - Other Systems Hx Cancer: Yes (ledt breass/p surgery) - Additional Comments Anesthesia Medical History Comments: Amaurosis fugax of Right eye
--- NOTE | 2016-08-22 12:42 | Anesthesia Day of Surgery ---
Anesthesia Day of Surgery - Day of Surgery Patient Examined: Yes Patient H&P Reviewed: Yes Patient is NPO: Yes
--- NOTE | 2016-08-22 12:46 | Operative Report ---
Operative Report Operative Report: Date of procedure: 08/22/2016 Preprocedure diagnosis: Lower GI bleeding Post procedure diagnosis: Extensive diverticulosis throughout the entire colon Procedure: Colonoscopy to the cecum Endoscopist: Dr. Tejeda Anesthesia: Monitored anesthesia care per anesthesia department Estimated blood loss: 0 Medications: Monitored anesthesia care. See separate report by anesthesia for details. After careful discussion of the nature and purpose of the procedure as well as details of the technique risks benefits and alternatives the patient gave consent. Please see recent history and physical from the office. The patient was placed in the left lateral decubitus position and medicated per anesthesia. A rectal exam was performed sphincter tone was normal there were no masses palpable. The Shhmoozen 570 scope was passed transanally and advanced under continuous direct vision without difficulty to the cecum. The colon was well prepared. The cecum was normal. The ascending colon revealed moderate diverticulosis but otherwise was normal and on forward and retroflexed views. The transverse colon , descending colon, and sigmoid colon revealed extensive diverticulosis. Bleeding was evident The rectum was normal on forward and retroflexed views. The procedure was well-tolerated overall and the patient was observed in recovery. Conclusions: Extensive diverticulosis throughout the entire colon. No active bleeding Plan: With hold aspirin therapy for 7 days. Repeat colonoscopy only as needed in light of age. Signed electronically: Ac Tejeda M.D.
--- NOTE | 2016-08-22 13:58 | Post Anesthesia Evaluation ---
- Post Anesthesia Evaluation Patient Participated: Yes Airway Patent: Yes Stable Respiratory Function: Yes Nausea/Vomiting: No Temp > 96.8F: Yes Pain Manageable: Yes Adequeate Hydration: Yes Anesthesia Complications: No Block Receding Appropriately: Not Applicable Patient on Ventilator: No
[2016-08-22] MEDS: NORVASC PO SCH (15:53)
[2016-08-22 15:54] VITALS: BP 150/68
== END 2016-08-22 17:55 | disposition home or self-care (01) | DRG 378 ==
LOC: ED 03:29 → 4A 10:03
PROVIDERS: ADMIT Family Medicine; ATTEND Internal Medicine
PROC: 30233N1 Transfusion of Nonautologous Red Blood Cells into Peripheral Vein, Percutaneous Approach (ICD-10-PCS; 2016-08-20)
PROC: 0DJD8ZZ Inspection of Lower Intestinal Tract, Via Natural or Artificial Opening Endoscopic (ICD-10-PCS; principal; 2016-08-22)
DX: K57.31 Diverticulosis of large intestine without perforation or abscess with bleeding (principal); D62 Acute posthemorrhagic anemia; G45.3 Amaurosis fugax; E11.3291 Type 2 diabetes mellitus with mild nonproliferative diabetic retinopathy without macular edema, right eye; I10 Essential (primary) hypertension; J45.909 Unspecified asthma, uncomplicated; Z87.891 Personal history of nicotine dependence; Z85.3 Personal history of malignant neoplasm of breast; Z90.49 Acquired absence of other specified parts of digestive tract; Z78.9 Other specified health status; Z91.013 Allergy to seafood; Z90.710 Acquired absence of both cervix and uterus
CPT/HCPCS: 36415; 80048; 80053; 80061; 81001; 82043; 82962; 83036; 83690; 85014; 85018; 85025; 85610; 85730; 86850; 86900; 86901; 86920; 93005; 93010; 94640; C9113; J2704; J7030; J7050; P9016

== ENCOUNTER 2017-02-02 14:05 | Emergency (ER) | payer MEDICARE ==
[2017-02-02] MEDS ORDERED: NACL 0.9% 1000 ML 1,000 ML IV ONE (14:18)
[2017-02-02 15:11] LABS: Basophils % (Auto) 1.1 % (0.0-1.8); Eosinophils % (Auto) 0.5 % (0.0-4.3); Mean Corpuscular HGB Conc 30 % (30-34); Mean Corpuscular Volume 70 fl (79-97); Platelet Count 297 K/mm3 (140-440); Red Blood Count 4.12 M/mm3 (3.65-5.03); White Blood Count 7.4 K/mm3 (4.5-11.0)
[2017-02-02 15:12] LABS: Hemoglobin 8.6 gm/dl (10.1-14.3)
[2017-02-02 15:13] LABS: Mean Corpuscular Hemoglobin 21 pg (28-32); Red Cell Distribution Width 23.8 % (13.2-15.2)
[2017-02-02 15:15] LABS: INR 1.07 (0.87-1.13)
[2017-02-02 15:16] LABS: Partial Thromboplastin Time 26.2 Sec. (24.2-36.6)
[2017-02-02 15:21] LABS: Alanine Aminotransferase 9 units/L (7-56); Albumin 4.1 g/dL (3.9-5); Albumin/Globulin Ratio 1.1 %; Alkaline Phosphatase 103 units/L (35-129); Anion Gap 11 mmol/L; Blood Urea Nitrogen 18 mg/dL (7-17); Calcium 9.3 mg/dL (8.4-10.2); Carbon Dioxide 35 mmol/L (22-30); Chloride 99.7 mmol/L (98-107); Glucose 162 mg/dL (65-100); Lipase 24 units/L (13-60); Potassium 3.7 mmol/L (3.6-5.0); Sodium 142 mmol/L (137-145); Total Protein 7.9 g/dL (6.3-8.2)
--- NOTE | 2017-02-02 16:47 | Emergency Department Report ---
HPI - General Chief Complaint: GI Bleed Time Seen by Provider: 02/02/17 16:27 - HPI HPI: This is a 86-year-old Afro-[place] female presents to the emergency department home with complaint of rectal bleeding seen during bowel movements today. The patient had a total of 4 bowel movements and says that she noticed blood on the toilet paper and slightly in the toilet bowl with the first 3 bowel movements but the last bowel movement she said was clean without any evidence of bleeding. The blood, when it occurred, was red in color and she denies any dark tarry stool. The patient says that she has history of diverticulosis and that this type of rectal bleeding happens often. She denies any abdominal pain , back pain, rectal pain. She denies that the bowel movements were any harder or more copious than usual. She did not take anything for symptoms prior to presentation. She also has a past nuchal history of asthma, diabetes, hypertension. Her primary care physician is Dr. Landin. 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 No recent travel or sick contacts at home. ED Past Medical Hx - Past Medical History Previous Medical History?: Yes Hx Hypertension: Yes Hx Diabetes: Yes Hx Asthma: Yes Additional medical history: DIVERTICULLITIS rectal bleeding - Surgical History Past Surgical History?: Yes - Social History Smoking Status: Former Smoker Substance Use Type: Prescribed - Medications Home Medications: Home Medications Medication Instructions Recorded Confirmed Last Taken Type ALBUTEROL Inhaler [ProAir HFA 2 puff PO Q4HR 01/01/16 02/02/17 02/01/17 History Inhaler] LORazepam [Ativan] 0.5 mg PO Q6H PRN 01/01/16 02/02/17 02/01/17 History Potassium Chloride 10 meq PO QDAY 01/01/16 02/02/17 02/01/17 History Ranitidine HCl [Zantac 150 MG TAB] 150 mg PO BID 01/01/16 02/02/17 02/01/17 History metFORMIN [Glucophage] 500 mg PO BID 01/01/16 02/02/17 02/01/17 History Brimonidine/Timolol 0.2-0.5% 1 drops OP Q12H #1 bottle 08/15/16 02/02/17 Rx [Combigan 0.2-0.5%] Latanoprost 0.005% [Xalatan 0.005%] 1 drops OU QHS #1 bottle 08/15/16 02/02/17 02/01/17 Rx Glimepiride [Amaryl] 2 mg PO QAM 08/20/16 02/02/17 02/01/17 History amLODIPine [Norvasc] 5 mg PO DAILY 08/20/16 02/02/17 02/01/17 History Aspirin [Adult Low Dose Aspirin EC] 81 mg PO DAILY #30 tablet. 08/22/1602/01/17 Rx ED Review of Systems ROS: Stated complaint: RECTAL BLEEDING Other details as noted in HPI Comment: All other systems reviewed and negative Constitutional: denies: chills, fever Eyes: denies: eye pain, eye discharge, vision change ENT: denies: ear pain, throat pain Respiratory: denies: cough, shortness of breath, wheezing Cardiovascular: denies: chest pain, palpitations Gastrointestinal: other (rectal bleeding). denies: abdominal pain, nausea, diarrhea, melena Genitourinary: denies: urgency, dysuria, discharge Musculoskeletal: denies: back pain, joint swelling, arthralgia Skin: denies: rash, lesions Neurological: denies: headache, weakness, paresthesias Physical Exam - Physical Exam Vital Signs: Vital Signs 02/02/17 14:14 Temperature 98 F Pulse Rate 97 H Respiratory 20 Rate Blood Pressure 137/92 O2 Sat by Pulse 98 Oximetry Physical Exam: GENERAL: The patient is well-developed well-nourished. HEENT: Normocephalic. Atraumatic. Extraocular motions are intact. Patient has moist mucous membranes. Pupils equal reactive to light bilaterally. NECK: Supple. Trachea is midline. CHEST/LUNGS: Clear to auscultation. There is no respiratory distress noted. HEART/CARDIOVASCULAR: Regular. There is no tachycardia. There is no gallop rub or murmur. ABDOMEN: Abdomen is soft, nontender. Patient has normal bowel sounds. There is no abdominal distention. SKIN: Skin is warm and dry. NEURO: The patient is awake, alert, and oriented. The patient is cooperative. The patient has no focal neurologic deficits. The patient has normal speech. MUSCULOSKELETAL: There is no tenderness or deformity. There is no limitation range of motion. There is no evidence of acute injury. RECTAL: No visible hemorrhoids or lesions seen. There is no gross blood. The mild amount of stool obtained was positive on guaiac testing. ED Course Vital Signs 02/02/17 14:14 Temperature 98 F Pulse Rate 97 H Respiratory 20 Rate Blood Pressure 137/92 O2 Sat by Pulse 98 Oximetry ED Medical Decision Making - Lab Data Result diagrams: 02/02/17 14:43 02/02/17 14:43 - EKG Data -: EKG Interpreted by Me EKG shows normal: sinus rhythm, axis, intervals, QRS complexes, ST-T waves Rate: normal - EKG Data When compared to previous EKG there are: previous EKG unavailable Interpretation: normal EKG, unchanged when compared t (08/20/16) - Medical Decision Making 86-year-old female with a history of diverticulosis and previous rectal bleeding presents with some mild rectal bleeding that occurred during 3 out of 4 bowel movements today. It has since stopped. She denies any abdominal pain, rectal pain, back pain, nausea, vomiting or fever. Vital signs stable throughout her ED course including being afebrile. Labs are mostly unremarkable. She does have some anemia with a hemoglobin of about 8.5 but this is not a level that requires transfusion at this time as there is no active hemorrhage and she does have a history of some level of anemia in the past. She has good follow-up with primary care but will be given a referral for gastroenterology and understand she may need a repeat colonoscopy in the near future. She will return to the emergency department with any worsening of her bleeding, any shortness of breath, abdominal pain, back pain or fever, or any acute distress. She understands and agrees to plan. - Differential Diagnosis diverticulosis, hemorrhoids, malignancy Critical Care Time: No Critical care attestation.: If time is entered above; I have spent that time in minutes in the direct care of this critically ill patient, excluding procedure time. ED Disposition Clinical Impression: Rectal bleeding, History of diverticulosis Disposition: TO HOME OR SELFCARE Is pt being admited?: No Condition: Stable Instructions: Rectal Bleeding (ED) Additional Instructions: Please follow-up with your primary care doctor in the next few days. I've given you a referral for a local flatbed owner operator, Dr. Grajeda, to follow up regarding the rectal bleeding. Return to the emergency department with any worsening of the bleeding, development of abdominal pain or fever, or any acute distress. Referrals: FITZ SIMONS MD [Referring] - 3-5 Days SHELDON GRAJEDA MD [Staff Physician] - 3-5 Days Forms: Accompanied Note Time of Disposition: 17:18
[2017-02-02 17:23] VITALS: BP 168/82
== END 2017-02-02 17:46 | disposition home or self-care (01) ==
LOC: ED 14:05
DX: K62.5 Hemorrhage of anus and rectum (principal); I10 Essential (primary) hypertension; E11.9 Type 2 diabetes mellitus without complications; J45.909 Unspecified asthma, uncomplicated; Z87.891 Personal history of nicotine dependence
CPT/HCPCS: 36415; 80053; 83690; 85025; 85610; 85730; 86850; 86900; 86901; 93005; 93010; 99284

== ENCOUNTER 2017-05-07 00:56 | Inpatient (IN) | payer MEDICARE ==
[2017-05-07] MEDS ORDERED: NACL 0.9% 1000 ML 1,000 ML IV ONE (03:14)
[2017-05-07 03:57] LABS: Basophils % (Auto) 0.4 % (0.0-1.8); Eosinophils % (Auto) 0.5 % (0.0-4.3); Hematocrit 28.9 % (30.3-42.9); Mean Corpuscular HGB Conc 31 % (30-34); Mean Corpuscular Volume 74 fl (79-97); Platelet Count 246 K/mm3 (140-440); Red Blood Count 3.92 M/mm3 (3.65-5.03); White Blood Count 9.1 K/mm3 (4.5-11.0)
[2017-05-07 04:02] LABS: Mean Corpuscular Hemoglobin 23 pg (28-32); Red Cell Distribution Width 20.2 % (13.2-15.2)
[2017-05-07 04:07] LABS: INR 1.09 (0.87-1.13); Partial Thromboplastin Time 26.4 Sec. (24.2-36.6)
[2017-05-07 04:59] LABS: Alanine Aminotransferase 10 units/L (7-56); Albumin/Globulin Ratio 1.3 %; Alkaline Phosphatase 98 units/L (35-129); Anion Gap 18 mmol/L; BUN/Creatinine Ratio 16; Blood Urea Nitrogen 11 mg/dL (7-17); Calcium 8.6 mg/dL (8.4-10.2); Carbon Dioxide 26 mmol/L (22-30); Chloride 104.7 mmol/L (98-107); Glucose 177 mg/dL (65-100); Lipase 21 units/L (13-60); Potassium 3.6 mmol/L (3.6-5.0); Sodium 145 mmol/L (137-145); Total Protein 7.2 g/dL (6.3-8.2)
[2017-05-07 08:16] LABS: Hematocrit 26.9 % (30.3-42.9); Hemoglobin 8.6 gm/dl (10.1-14.3); Mean Corpuscular HGB Conc 32 % (30-34); Mean Corpuscular Volume 73 fl (79-97); Platelet Count 227 K/mm3 (140-440); Red Blood Count 3.71 M/mm3 (3.65-5.03); White Blood Count 9.5 K/mm3 (4.5-11.0)
--- NOTE | 2017-05-07 08:37 | Emergency Department Report ---
ED GI Bleed HPI - General Chief complaint: GI Bleed Stated complaint: GI BLEED Time Seen by Provider: 05/07/17 07:50 Source: patient Mode of arrival: Ambulatory Limitations: No Limitations - History of Present Illness Initial comments: A 86-year-old female presents here with complaints of effortless lower GI bleeding. Problem stated yesterday morning, progressively got worse. Last night she had a heavy bleed. Patient complains of nausea and vomiting, and some generalized weakness. She denies abdominal pain, no fever or chills. Past medical history significant for hypertension, diabetes mellitus, prior episodes of lower GI bleed. Patient also reports having history of left breast cancer with lymphedema, left upper limb.. MD complaint: gross hematochezia -: Gradual (progressively got worse last night) Radiation: none Quality: painless Context: history of GI bleed (diverticulosis, last episode was 3 months ago) Associated Symptoms: nausea, vomiting, loss of appetite, malaise, weakness. denies: epistaxis, fever/chills, headaches, easy bruising, rash, other bleeding , shortness of breath, syncope - Related Data Home Medications Medication Instructions Recorded Confirmed Last Taken ALBUTEROL Inhaler [ProAir HFA 2 puff PO Q4HR 01/01/16 02/02/17 02/01/17 Inhaler] LORazepam [Ativan] 0.5 mg PO Q6H PRN 01/01/16 02/02/17 02/01/17 Potassium Chloride 10 meq PO QDAY 01/01/16 02/02/17 02/01/17 Ranitidine HCl [Zantac 150 MG TAB] 150 mg PO BID 01/01/16 02/02/17 02/01/17 metFORMIN [Glucophage] 500 mg PO BID 01/01/16 02/02/17 02/01/17 Glimepiride [Amaryl] 2 mg PO QAM 08/20/16 02/02/17 02/01/17 amLODIPine [Norvasc] 5 mg PO DAILY 08/20/16 02/02/17 02/01/17 Previous Rx's Medication Instructions Recorded Last Taken Type Brimonidine/Timolol 0.2-0.5% 1 drops OP Q12H #1 bottle 08/15/16 02/01/17 Rx [Combigan 0.2-0.5%] Latanoprost 0.005% [Xalatan 0.005%] 1 drops OU QHS #1 bottle 08/15/16 02/01/17 Rx Aspirin [Adult Low Dose Aspirin EC] 81 mg PO DAILY #30 tablet. 08/22/16 Rx Allergies Allergy/AdvReac Type Severity Reaction Status Date / Time shellfish derived Allergy Swelling Verified 08/15/16 15:42 ED Review of Systems ROS: Stated complaint: GI BLEED Other details as noted in HPI Comment: All other systems reviewed and negative Constitutional: see HPI, malaise, weakness. denies: diaphoresis, fever Eyes: denies: eye pain, eye discharge, vision change ENT: denies: throat pain, dental pain, hearing loss, epistaxis Respiratory: denies: no symptoms reported, shortness of breath, SOB with exertion, SOB at rest Cardiovascular: as per HPI. denies: chest pain, palpitations, dyspnea on exertion, edema Endocrine: see HPI Gastrointestinal: nausea, vomiting, hematochezia. denies: abdominal pain, diarrhea, constipation, hematemesis Genitourinary: denies: urgency, dysuria, frequency Musculoskeletal: denies: joint swelling, arthralgia Skin: denies: lesions, change in color, change in hair/nails, pruritus Neurological: weakness. denies: numbness, paresthesias ED Past Medical Hx - Past Medical History Previous Medical History?: Yes Hx Hypertension: Yes Hx Diabetes: Yes Hx Asthma: Yes Additional medical history: DIVERTICULLITIS rectal bleeding - Social History Smoking Status: Former Smoker - Medications Home Medications: Home Medications Medication Instructions Recorded Confirmed Last Taken Type ALBUTEROL Inhaler [ProAir HFA 2 puff PO Q4HR 01/01/16 02/02/17 02/01/17 History Inhaler] LORazepam [Ativan] 0.5 mg PO Q6H PRN 01/01/16 02/02/17 02/01/17 History Potassium Chloride 10 meq PO QDAY 01/01/16 02/02/17 02/01/17 History Ranitidine HCl [Zantac 150 MG TAB] 150 mg PO BID 01/01/16 02/02/17 02/01/17 History metFORMIN [Glucophage] 500 mg PO BID 01/01/16 02/02/17 02/01/17 History Brimonidine/Timolol 0.2-0.5% 1 drops OP Q12H #1 bottle 08/15/16 02/02/17 Rx [Combigan 0.2-0.5%] Latanoprost 0.005% [Xalatan 0.005%] 1 drops OU QHS #1 bottle 08/15/16 02/02/17 02/01/17 Rx Glimepiride [Amaryl] 2 mg PO QAM 08/20/16 02/02/17 02/01/17 History amLODIPine [Norvasc] 5 mg PO DAILY 08/20/16 02/02/17 02/01/17 History Aspirin [Adult Low Dose Aspirin EC] 81 mg PO DAILY #30 tablet. 08/22/1602/01/17 Rx ED Physical Exam - General Limitations: No Limitations General appearance: alert, in distress (mild) - Head Head exam: Present: atraumatic, normocephalic - Eye Eye exam: Present: normal appearance, PERRL, EOMI, scleral icterus (tinge), other ([place]) - ENT ENT exam: Present: normal exam, normal orophraynx, mucous membranes moist - Neck Neck exam: Present: normal inspection, full ROM. Absent: tenderness, meningismus, lymphadenopathy, thyromegaly - Respiratory Respiratory exam: Present: normal lung sounds bilaterally. Absent: respiratory distress, wheezes, rales, rhonchi, stridor, chest wall tenderness, accessory muscle use, decreased breath sounds, prolonged expiratory - Cardiovascular Cardiovascular Exam: Present: regular rate, normal rhythm, normal heart sounds. Absent: tachycardia, irregular rhythm, systolic murmur, diastolic murmur - GI/Abdominal GI/Abdominal exam: Present: soft, normal bowel sounds. Absent: distended, tenderness, guarding, rebound, rigid, hyperactive bowel sounds, hypoactive bowel sounds, organomegaly, mass, bruit, pulsatile mass - Extremities Exam Extremities exam: Present: normal inspection, full ROM, normal capillary refill. Absent: tenderness, pedal edema, joint swelling - Back Exam Back exam: Present: normal inspection, full ROM. Absent: tenderness, CVA tenderness (R), CVA tenderness (L), muscle spasm - Skin Skin exam: Present: warm, dry ED Course Vital Signs 05/07/17 03:07 Temperature 98.3 F Pulse Rate 92 H Respiratory 18 Rate Blood Pressure 145/80 O2 Sat by Pulse 96 Oximetry - Consultations Consultation #1: 05/07/17 09:47 Discussed with Michelle Squires, he accepts patient in admission to telemetry ED Medical Decision Making - Lab Data Result diagrams: 05/07/17 07:35 05/07/17 03:36 - EKG Data -: EKG Interpreted by Me - EKG Data 05/07/17 09:48 Normal sinus rhythm rate of 81 bpm, normal axis , normal intervals and nonspecific ST changes in V2 and V3, ventricular premature complexes. - Radiology Data Radiology results: pending - Medical Decision Making History of diverticulosis, anemia with hemoglobin of 8 Critical Care Time: No Critical care attestation.: If time is entered above; I have spent that time in minutes in the direct care of this critically ill patient, excluding procedure time. ED Disposition Clinical Impression: Diverticulosis, Anemia Disposition: 09 OP ADMIT IP TO THIS HOSP Is pt being admited?: Yes Does the pt Need Aspirin: No Condition: Stable Referrals: PRIMARY CARE, [Primary Care Provider] - 3-5 Days Forms: Accompanied Note Time of Disposition: 09:51
[2017-05-07 08:53] LABS: Mean Corpuscular Hemoglobin 23 pg (28-32); Red Cell Distribution Width 20.1 % (13.2-15.2)
[2017-05-07] MEDS ORDERED: NACL 0.9% 1000 ML 1,000 ML ONE (09:21)
[2017-05-07] MEDS ORDERED: NACL ONE (09:22)
[2017-05-07 09:44] LABS: INR 1.13 (0.87-1.13)
[2017-05-07 09:45] LABS: Partial Thromboplastin Time 27.7 Sec. (24.2-36.6)
--- NOTE | 2017-05-07 10:02 | Cat Scan Report ---
CT ABDOMEN AND PELVIS WITH CONTRAST: 05/07/17 CLINICAL: Lower GI bleeding. COMPARISON: 01/01/16 TECHNIQUE: Volumetric acquisition and 1.25 millimeter scan reconstructions after the uneventful intravenous injection of 100 cc Omnipaque 300. Consent was obtained prior to the administration of contrast. Oral contrast was not given. FINDINGS: Abdomen: Clear lung bases.Normal liver and bile duct status post cholecystectomy. Normal stomach, duodenum and spleen. The pancreas is small with relatively greater atrophy of the body and tail compared to the head. Mild dilatation of the pancreatic duct. No pancreatic calcifications, fluid or mass. Calcification and tortuosity of the abdominal aorta and iliac arteries. The inferior vena cava is normal. Normal adrenal glands. Kidneys are normal except for a benign 3.3 cm left upper pole renal cyst. The renal collecting systems and ureters are nondilated. Normal small bowel.Extensive diverticulosis throughout the colon but no signs of diverticulitis. A large volume of stool throughout the colon limits the evaluation of the colon for mass. An appendix is not identified. No mass, lymphadenopathy or ascites.No pneumoperitoneum. Pelvis: The urinary bladder is nondistended with an ill-defined wall.Absence of a uterus and normal vaginal cuff. The ovaries are not identified. Extensive diverticulosis of the sigmoid colon but no diverticulitis. The rectum is normal.No pelvic mass, fluid or lymphadenopathy. Bone windows demonstrate no bone lesion. 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 IMPRESSION:1. Extensive diverticulosis but no evidence of diverticulitis. 2. He presents of stool in the colon limits the examination for excluding a colon mass. 3. Status post cholecystectomy, hysterectomy and appendectomy.
--- NOTE | 2017-05-07 18:28 | History and Physical Report ---
History of Present Illness Date of examination: 05/07/17 Date of admission: 05/07/17 10:30 Chief complaint: CC: Lower GI Bleed since last night History of present illness: History of Present Illness A 86-year-old female presents here with complaints of BRBPR.Good AMOUNT OF BLOOD THIS am per rectum. Problem started yesterday evening and progressively got worse. Last night also she had a heavy bleed. Patient complains of nausea and vomiting, and some generalized weakness. She denies abdominal pain, no fever or chills. Past medical history significant for hypertension, diabetes mellitus, prior episodes of lower GI bleed. Patient also reports having history of left breast cancer with lymphedema . gross hematochezia -: Gradual (progressively got worse last night) Quality: painless Context: history of GI bleed (diverticulosis, last episode was 3 months ago) Associated Symptoms: nausea, vomiting, loss of appetite, malaise, weakness. denies: epistaxis, fever/chills, headaches, easy bruising, rash, other bleeding , shortness of breath, syncope - Past Medical History Previous Medical History?: Yes Hx Hypertension: Yes Hx Diabetes: Yes Hx Asthma: Yes Additional medical historyz: Diverticulosis - Social History Smoking Status: Former Smoker - Medications Home Medications: Fam History: Htn Home Medications Medication Instructions Recorded Confirmed Last Taken Type ALBUTEROL Inhaler [ProAir HFA 2 puff PO Q4HR 01/01/16 02/02/17 02/01/17 History Inhaler] LORazepam [Ativan] 0.5 mg PO Q6H PRN 01/01/16 02/02/17 02/01/17 History Potassium Chloride 10 meq PO QDAY 01/01/16 02/02/17 02/01/17 History Ranitidine HCl [Zantac 150 MG TAB] 150 mg PO BID 01/01/16 02/02/17 02/01/17 History metFORMIN [Glucophage] 500 mg PO BID 01/01/16 02/02/17 02/01/17 History Brimonidine/Timolol 0.2-0.5% 1 drops OP Q12H #1 bottle 08/15/16 02/02/17 Rx [Combigan 0.2-0.5%] Latanoprost 0.005% [Xalatan 0.005%] 1 drops OU QHS #1 bottle 08/15/16 02/02/17 02/01/17 Rx Glimepiride [Amaryl] 2 mg PO QAM 08/20/16 02/02/17 02/01/17 History amLODIPine [Norvasc] 5 mg PO DAILY 08/20/16 02/02/17 02/01/17 History Aspirin [Adult Low Dose Aspirin EC] 81 mg PO DAILY #30 tablet. 08/22/1602/01/17 Rx Review of Systems Stated complaint: GI BLEED Other details as noted in HPI Comment: All other systems reviewed and negative Constitutional: see HPI, malaise, weakness. denies: diaphoresis, fever Eyes: denies: eye pain, eye discharge, vision change ENT: denies: throat pain, dental pain, hearing loss, epistaxis Respiratory: denies: no symptoms reported, shortness of breath, SOB with exertion, SOB at rest Cardiovascular: as per HPI. denies: chest pain, palpitations, dyspnea on exertion, edema Endocrine: see HPI Gastrointestinal: nausea, vomiting, hematochezia. denies: abdominal pain, diarrhea, constipation, hematemesis Genitourinary: denies: urgency, dysuria, frequency Musculoskeletal: denies: joint swelling, arthralgia Skin: denies: lesions, change in color, change in hair/nails, pruritus Neurological: weakness. denies: numbness, paresthesias Medications and Allergies Allergies Allergy/AdvReac Type Severity Reaction Status Date / Time shellfish derived Allergy Swelling Verified 08/15/16 15:42 Home Medications Medication Instructions Recorded Confirmed Last Taken Type ALBUTEROL Inhaler [ProAir HFA 2 puff PO Q4HR PRN 01/01/16 05/07/17 05/04/17 11: 00 History Inhaler] 2 puffs LORazepam [Ativan] 0.5 mg PO QDAY PRN 01/01/16 05/07/17 05/06/17 12:00 History 0.5mg Potassium Chloride 10 meq PO QDAY 01/01/16 05/07/17 05/06/17 11:00 History 10meq Ranitidine HCl [Zantac 150 MG TAB] 150 mg PO BID 01/01/16 05/07/17 05/06/17 11: 00 History 150mg metFORMIN [Glucophage] 500 mg PO DAILY 01/01/16 05/07/17 05/07/17 11:00 History 500mg Latanoprost 0.005% [Xalatan 0.005%] 1 drops OU QHS #1 bottle 08/15/16 05/07/17 05/05/17 21:00 Rx 1 drop Glimepiride [Amaryl] 2 mg PO QAM 08/20/16 05/07/17 05/06/17 11:00 History 2mg amLODIPine [Norvasc] 2.5 mg PO DAILY 08/20/16 05/07/17 05/06/17 11:00 History 2.5mg Aspirin [Adult Low Dose Aspirin EC] 81 mg PO DAILY #30 tablet. 08/22/1605/06/17 11:00 Rx 81mg Brimonidine/Timolol 0.2-0.5% 1 drops OP Q12H 05/07/17 05/07/17 05/06/17 11:00 History [Combigan 0.2-0.5%] 1 drop Exam - Physical Exam Narrative exam: Lying comfortably - Constitutional Vitals: Temp Pulse Resp BP Pulse Ox 98.1 F 93 H 20 149/79 98 05/07/17 13:10 05/07/17 13:10 05/07/17 13:10 05/07/17 13:10 05/07/17 13:10 General appearance: Present: no acute distress, well-nourished - EENT Eyes: Present: PERRL ENT: hearing intact, clear oral mucosa - Neck Neck: Present: supple, normal ROM - Respiratory Respiratory effort: normal Respiratory: bilateral: CTA - Cardiovascular Heart rate: 80 Rhythm: regular Heart Sounds: Present: S1 & S2. Absent: rub, click - Extremities Extremities: no ischemia, pulses intact, pulses symmetrical, No edema Peripheral Pulses: within normal limits - Abdominal General gastrointestinal: Present: soft, non-tender, non-distended, normal bowel sounds Female genitourinary: Present: normal - Rectal Rectal Exam: stool bloody - Integumentary Integumentary: Present: clear, warm, dry - Musculoskeletal Musculoskeletal: gait normal, strength equal bilaterally - Psychiatric Psychiatric: appropriate mood/affect, intact judgment & insight - Neurologic Neurologic: CNII-XII intact, moves all extremities - Allied Health Allied health notes reviewed: nursing, case management Results - Labs CBC & Chem 7: 05/07/17 07:35 05/07/17 03:36 Labs: Laboratory Last Values WBC 9.5 K/mm3 (4.5-11.0) 05/07/17 07:35 RBC 3.71 M/mm3 (3.65-5.03) 05/07/17 07:35 Hgb 8.6 gm/dl (10.1-14.3) L 05/07/17 07:35 Hct 26.9 % (30.3-42.9) L 05/07/17 07:35 MCV 73 fl (79-97) L 05/07/17 07:35 MCH 23 pg (28-32) L 05/07/17 07:35 MCHC 32 % (30-34) 05/07/17 07:35 RDW 20.1 % (13.2-15.2) H 05/07/17 07:35 Plt Count 227 K/mm3 (140-440) 05/07/17 07:35 Lymph % (Auto) 14.3 % (13.4-35.0) 05/07/17 03:36 [place] % (Auto) 6.2 % (0.0-7.3) 05/07/17 03:36 Eos % (Auto) 0.5 % (0.0-4.3) 05/07/17 03:36 Baso % (Auto) 0.4 % (0.0-1.8) 05/07/17 03:36 Lymph # 1.3 K/mm3 (1.2-5.4) 05/07/17 03:36 [place] # 0.6 K/mm3 (0.0-0.8) 05/07/17 03:36 Eos # 0.0 K/mm3 (0.0-0.4) 05/07/17 03:36 Baso # 0.0 K/mm3 (0.0-0.1) 05/07/17 03:36 Seg Neutrophils % 78.6 % (40.0-70.0) H 05/07/17 03:36 Seg Neutrophils # 7.2 K/mm3 (1.8-7.7) 05/07/17 03:36 PT 15.1 Sec. (12.2-14.9) H 05/07/17 08:58 INR 1.13 (0.87-1.13) 05/07/17 08:58 APTT 27.7 Sec. (24.2-36.6) 05/07/17 08:58 Sodium 145 mmol/L (137-145) 05/07/17 03:36 Potassium 3.6 mmol/L (3.6-5.0) 05/07/17 03:36 Chloride 104.7 mmol/L (98-107) 05/07/17 03:36 Carbon Dioxide 26 mmol/L (22-30) 05/07/17 03:36 Anion Gap 18 mmol/L 05/07/17 03:36 BUN 11 mg/dL (7-17) 05/07/17 03:36 Creatinine 0.7 mg/dL (0.7-1.2) 05/07/17 03:36 Estimated GFR > 60 ml/min 05/07/17 03:36 BUN/Creatinine Ratio 16 % 05/07/17 03:36 Glucose 177 mg/dL (65-100) H 05/07/17 03:36 POC Glucose 95 (70-105) 05/07/17 18:19 Lactic Acid 1.30 mmol/L (0.7-2.0) 05/07/17 08:58 Calcium 8.6 mg/dL (8.4-10.2) 05/07/17 03:36 Magnesium 2.10 mg/dL (1.7-2.3) 05/07/17 08:58 Total Bilirubin 0.20 mg/dL (0.1-1.2) 05/07/17 03:36 AST 15 units/L (5-40) 05/07/17 03:36 ALT 10 units/L (7-56) 05/07/17 03:36 Alkaline Phosphatase 98 units/L (35-129) 05/07/17 03:36 Troponin T < 0.010 ng/mL (0.00-0.029) 05/07/17 08:58 Total Protein 7.2 g/dL (6.3-8.2) 05/07/17 03:36 Albumin 4.0 g/dL (3.9-5) 05/07/17 03:36 Albumin/Globulin Ratio 1.3 % 05/07/17 03:36 Lipase 21 units/L (13-60) 05/07/17 03:36 Blood Type AB POSITIVE 05/07/17 03:45 Antibody Screen TNR 05/07/17 03:45 GERRI Antibody Screen Negative 05/07/17 03:45 - Imaging and Cardiology CT scan - abdomen: report reviewed (Extensive Diverticulosis.No Diverticulitis.) Assessment and Plan Advance Directives: Yes (Full code) VTE prophylaxis?: Mechanical Plan of care discussed with patient/family: Yes - Patient Problems (1) Lower GI bleed Onset Date: 08/20/16 Current Visit: No Status: Acute Plan to address problem: Diverticular bleed.Had similar episode in December (2) Diverticulosis Current Visit: No Status: Chronic Qualifiers: Diverticulosis site: diverticulosis of large intestine Diverticulosis bleeding: D Plan to address problem: GI consult Transfuse if necessary (3) HTN (hypertension) Current Visit: Yes Status: Chronic Qualifiers: Hypertension type: essential hypertension Qualified Code(s): I10 - Essential (primary) hypertension Plan to address problem: Catapress patch TTS 1 q weekly (4) T2DM (type 2 diabetes mellitus) Current Visit: Yes Status: Chronic Qualifiers: Diabetes mellitus complication status: without complication Diabetes mellitus complication detail: D Diabetic retinopathy severity: D Proliferative retinopathy type: P Diabetes mellitus macular edema: D Diabetes mellitus assisted insulin use: D Laterality: L Chronic kidney disease stage: C Plan to address problem: No oral Hypoglycemics Coverage with Insulin Q6 h (5) DVT prophylaxis Onset Date: 08/20/16 Current Visit: No Status: Acute Plan to address problem: SCD's
[2017-05-07] MEDS ORDERED: PROAIR IH PRN (18:29)
[2017-05-07] MEDS ORDERED: PROVENTIL IH PRN (18:36)
[2017-05-07] MEDS ORDERED: CATAPRES-TTS PATCH TD SCH (21:00)
[2017-05-07] MEDS: COMBIGAN 0.2-0.5% OU SCH (21:41)
[2017-05-07] MEDS: XALATAN 0.005% OU SCH (21:41)
[2017-05-08] MEDS: COMBIGAN 0.2-0.5% OU SCH ×2 (09:23→22:15)
[2017-05-08 11:13] LABS: Hematocrit 26.1 % (30.3-42.9); Hemoglobin 7.9 gm/dl (10.1-14.3)
--- NOTE | 2017-05-08 11:31 | Gastroenterology Consultation ---
History of Present Illness - Reason for Consult Consult date: 05/08/17 GI bleed Requesting physician: HEATHER CAO - History of Present Illness Patient is a 86 y/o female with h/o HTN, DM, breast cancer, amaurosis fugaz (on daily ASA), and prior lower GI bleeding who was admitted for a GI bleed. She is previously known to our service from hospitalizations in 2016 and most recent for diverticular bleeding. She underwent a colonoscopy 08/22/[address] Tejeda that revealed extensive diverticulosis throughout the entire colon but no active bleeding. She reports developing rectal bleeding 2 days ago with bright red blood and clots that has continued to decrease with now no active signs of bleeding overnight or this am. She admits to slight generalized weakness but denies CP, SOB, dizziness, fever, wt loss, abd pain, N/V, hematemesis, melena, diarrhea, or constipation. Past History Past Medical History: diabetes, hypertension, other (breast cancer, amaurosis fagax) Past Surgical History: cholecystectomy, hysterectomy, Other (breast CA with lumpectomy and radiation, lymphedema) Social history: lives with family. denies: smoking, alcohol abuse Family history: no significant family history Medications and Allergies Allergies Allergy/AdvReac Type Severity Reaction Status Date / Time shellfish derived Allergy Swelling Verified 08/15/16 15:42 Home Medications Medication Instructions Recorded Confirmed Last Taken Type ALBUTEROL Inhaler [ProAir HFA 2 puff PO Q4HR PRN 01/01/16 05/07/17 05/04/17 11: 00 History Inhaler] 2 puffs LORazepam [Ativan] 0.5 mg PO QDAY PRN 01/01/16 05/07/17 05/06/17 12:00 History 0.5mg Potassium Chloride 10 meq PO QDAY 01/01/16 05/07/17 05/06/17 11:00 History 10meq Ranitidine HCl [Zantac 150 MG TAB] 150 mg PO BID 01/01/16 05/07/17 05/06/17 11: 00 History 150mg metFORMIN [Glucophage] 500 mg PO DAILY 01/01/16 05/07/17 05/07/17 11:00 History 500mg Latanoprost 0.005% [Xalatan 0.005%] 1 drops OU QHS #1 bottle 08/15/16 05/07/17 05/05/17 21:00 Rx 1 drop Glimepiride [Amaryl] 2 mg PO QAM 08/20/16 05/07/17 05/06/17 11:00 History 2mg amLODIPine [Norvasc] 2.5 mg PO DAILY 08/20/16 05/07/17 05/06/17 11:00 History 2.5mg Aspirin [Adult Low Dose Aspirin EC] 81 mg PO DAILY #30 tablet. 08/22/1605/06/17 11:00 Rx 81mg Brimonidine/Timolol 0.2-0.5% 1 drops OP Q12H 05/07/17 05/07/17 05/06/17 11:00 History [Combigan 0.2-0.5%] 1 drop Active Meds: Active Medications Albuterol (Proventil) 2.5 mg IH Q4H PRN PRN Reason: Shortness Of Breath Brimonidine/Timolol (Combigan 0.2-0.5%) 1 drops OU Q12HR [facility] Last Admin: 05/08/17 09:23 Dose: 1 drops Clonidine HCl (Catapres-Tts Patch) 0.1 mg TD Padron [facility] Last Admin: 05/07/17 21:40 Dose: 0.1 mg Latanoprost (Xalatan 0.005%) 1 drops OU QHS [facility] Last Admin: 05/07/17 21:41 Dose: 1 drops Review of Systems - Review of Systems All systems: negative Gastrointestinal: hematochezia Exam - Constitutional Vital Signs: Temp Pulse Resp BP Pulse Ox 98.5 F 74 18 134/55 96 05/08/17 08:28 05/08/17 08:28 05/08/17 08:28 05/08/17 08:28 05/08/17 08:28 General appearance: no acute distress - EENT Eyes: PERRL, EOM intact ENT: hearing intact - Respiratory Respiratory: bilateral: CTA - Cardiovascular Rhythm: regular Heart Sounds: Present: S1 & S2 Extremities: No edema - Gastrointestinal General gastrointestinal: Present: soft, non-tender, non-distended, normal bowel sounds - Integumentary Integumentary: Present: warm, dry - Neurologic Neurological: alert and oriented x3 - Labs CBC & Chem 7: 05/08/17 10:39 05/07/17 03:36 Lab Results: Laboratory Results - last 24 hr 05/07/17 05/07/17 05/08/17 18:19 23:57 06:01 Hgb Hct POC Glucose 95 114 H 114 H Hemoglobin A1c 05/08/17 05/08/17 08:47 10:39 Hgb 7.9 L Hct 26.1 L POC Glucose Hemoglobin A1c 6.9 H Assessment and Plan 1.GI bleed 2.hematochezia -HGB 7.9-trending down -continue to monitor H/H and transfuse as needed -continue to hold blood thinning medications -hemodynamially stable -no active signs of bleeding overnight or this am -etiology most likely 2/2 recurrent diverticular bleed -colonoscopy 08/22/16 revealed extensive diverticulosis throughout the entire colon but no active bleeding -abd CT yesterday showed extensive diverticulosis but no diverticulitis -will treat with conservative management at this time -if bleeding should persist will consider bleeding scan vs IR consultation for possible embolization vs surgical consultation -will follow
[2017-05-08] MEDS: XALATAN 0.005% OU SCH (22:24)
--- NOTE | 2017-05-08 23:31 | Progress Note ---
Assessment and Plan Assessment and plan: A 86-year-old female presents here with complaints of BRBPR.Good AMOUNT OF BLOOD THIS am per rectum. Problem started yesterday evening and progressively got worse. Last night also she had a heavy bleed. Patient complains of nausea and vomiting, and some generalized weakness. She denies abdominal pain, no fever or chills. Past medical history significant for hypertension, diabetes mellitus, prior episodes of lower GI bleed. Patient also reports having history of left breast cancer with lymphedema. - Patient Problems (1) Lower GI bleed Onset Date: 08/20/16 Current Visit: No Status: Acute Plan to address problem: Diverticular bleed.Had similar episode in December Hold ASA, patient denies any history of CAD, STROKE IF NO FURTHER BLEED WILL DISCHARGE IN AM (2) Diverticulosis Current Visit: No Status: Chronic Qualifiers: Diverticulosis site: diverticulosis of large intestine Diverticulosis bleeding: D Plan to address problem: GI consult Transfuse if necessary (3) HTN (hypertension) Current Visit: Yes Status: Chronic Qualifiers: Hypertension type: essential hypertension Qualified Code(s): I10 - Essential (primary) hypertension Plan to address problem: Restart PO intake. (4) T2DM (type 2 diabetes mellitus) Current Visit: Yes Status: Chronic Qualifiers: Diabetes mellitus complication status: without complication Diabetes mellitus complication detail: D Diabetic retinopathy severity: D Proliferative retinopathy type: P Diabetes mellitus macular edema: D Diabetes mellitus fpc insulin use: D Laterality: L Chronic kidney disease stage: C Plan to address problem: No oral Hypoglycemics Coverage with Insulin Q6 h (5) DVT prophylaxis Onset Date: 08/20/16 Current Visit: No Status: Acute Plan to address problem: SCD's History Interval history: Patient seen and examined, in no acute distress. Son at the bedside. Hospitalist Physical - Constitutional Vitals: Temp Pulse Resp BP Pulse Ox 98.5 F 79 18 144/60 95 05/08/17 20:00 05/08/17 20:00 05/08/17 20:00 05/08/17 20:00 05/08/17 20:00 General appearance: Present: no acute distress, well-nourished - EENT Eyes: Present: PERRL, EOM intact ENT: hearing intact - Neck Neck: Present: supple, normal ROM - Respiratory Respiratory: bilateral: CTA - Cardiovascular Rhythm: regular Heart Sounds: Present: S1 & S2. Absent: systolic murmur, diastolic murmur - Extremities Extremities: no ischemia, pulses intact, pulses symmetrical, No edema, normal temperature, normal color Peripheral Pulses: within normal limits - Abdominal General gastrointestinal: soft, non-tender, non-distended, normal bowel sounds - Integumentary Integumentary: Present: clear, warm, dry - Psychiatric Psychiatric: appropriate mood/affect, intact judgment & insight, cooperative - Neurologic Neurologic: CNII-XII intact, moves all extremities - Allied Health Allied health notes reviewed: nursing, social work Results - Labs CBC & Chem 7: 05/09/17 04:26 05/09/17 04:26 Labs: Laboratory Last Values WBC 9.5 K/mm3 (4.5-11.0) 05/07/17 07:35 RBC 3.71 M/mm3 (3.65-5.03) 05/07/17 07:35 Hgb 7.9 gm/dl (10.1-14.3) L 05/08/17 10:39 Hct 26.1 % (30.3-42.9) L 05/08/17 10:39 MCV 73 fl (79-97) L 05/07/17 07:35 MCH 23 pg (28-32) L 05/07/17 07:35 MCHC 32 % (30-34) 05/07/17 07:35 RDW 20.1 % (13.2-15.2) H 05/07/17 07:35 Plt Count 227 K/mm3 (140-440) 05/07/17 07:35 Lymph % (Auto) 14.3 % (13.4-35.0) 05/07/17 03:36 Grand % (Auto) 6.2 % (0.0-7.3) 05/07/17 03:36 Eos % (Auto) 0.5 % (0.0-4.3) 05/07/17 03:36 Baso % (Auto) 0.4 % (0.0-1.8) 05/07/17 03:36 Lymph # 1.3 K/mm3 (1.2-5.4) 05/07/17 03:36 Grand # 0.6 K/mm3 (0.0-0.8) 05/07/17 03:36 Eos # 0.0 K/mm3 (0.0-0.4) 05/07/17 03:36 Baso # 0.0 K/mm3 (0.0-0.1) 05/07/17 03:36 Seg Neutrophils % 78.6 % (40.0-70.0) H 05/07/17 03:36 Seg Neutrophils # 7.2 K/mm3 (1.8-7.7) 05/07/17 03:36 PT 15.1 Sec. (12.2-14.9) H 05/07/17 08:58 INR 1.13 (0.87-1.13) 05/07/17 08:58 APTT 27.7 Sec. (24.2-36.6) 05/07/17 08:58 Sodium 145 mmol/L (137-145) 05/07/17 03:36 Potassium 3.6 mmol/L (3.6-5.0) 05/07/17 03:36 Chloride 104.7 mmol/L (98-107) 05/07/17 03:36 Carbon Dioxide 26 mmol/L (22-30) 05/07/17 03:36 Anion Gap 18 mmol/L 05/07/17 03:36 BUN 11 mg/dL (7-17) 05/07/17 03:36 Creatinine 0.7 mg/dL (0.7-1.2) 05/07/17 03:36 Estimated GFR > 60 ml/min 05/07/17 03:36 BUN/Creatinine Ratio 16 % 05/07/17 03:36 Glucose 177 mg/dL (65-100) H 05/07/17 03:36 POC Glucose 81 (70-105) 05/08/17 18:32 Hemoglobin A1c 6.9 % (4-6) H 05/08/17 08:47 Lactic Acid 1.30 mmol/L (0.7-2.0) 05/07/17 08:58 Calcium 8.6 mg/dL (8.4-10.2) 05/07/17 03:36 Magnesium 2.10 mg/dL (1.7-2.3) 05/07/17 08:58 Total Bilirubin 0.20 mg/dL (0.1-1.2) 05/07/17 03:36 AST 15 units/L (5-40) 05/07/17 03:36 ALT 10 units/L (7-56) 05/07/17 03:36 Alkaline Phosphatase 98 units/L (35-129) 05/07/17 03:36 Troponin T < 0.010 ng/mL (0.00-0.029) 05/07/17 08:58 Total Protein 7.2 g/dL (6.3-8.2) 05/07/17 03:36 Albumin 4.0 g/dL (3.9-5) 05/07/17 03:36 Albumin/Globulin Ratio 1.3 % 05/07/17 03:36 Lipase 21 units/L (13-60) 05/07/17 03:36 Blood Type AB POSITIVE 05/07/17 03:45 Antibody Screen TNR 05/07/17 03:45 GERRI Antibody Screen Negative 05/07/17 03:45
[2017-05-09 04:56] LABS: Hematocrit 23.7 % (30.3-42.9); Hemoglobin 7.2 gm/dl (10.1-14.3); Mean Corpuscular HGB Conc 31 % (30-34); Mean Corpuscular Volume 74 fl (79-97); Platelet Count 208 K/mm3 (140-440); Red Blood Count 3.21 M/mm3 (3.65-5.03); Red Cell Distribution Width 19.3 % (13.2-15.2); White Blood Count 5.5 K/mm3 (4.5-11.0)
[2017-05-09 04:58] LABS: Mean Corpuscular Hemoglobin 23 pg (28-32)
[2017-05-09 05:14] LABS: Anion Gap 15 mmol/L; BUN/Creatinine Ratio 22; Blood Urea Nitrogen 13 mg/dL (7-17); Calcium 8.2 mg/dL (8.4-10.2); Carbon Dioxide 28 mmol/L (22-30); Chloride 105.9 mmol/L (98-107); Glucose 118 mg/dL (65-100); Potassium 3.3 mmol/L (3.6-5.0); Sodium 146 mmol/L (137-145)
[2017-05-09] MEDS: COMBIGAN 0.2-0.5% OU SCH (09:19)
--- NOTE | 2017-05-09 09:47 | Gastroenterology Progress Note ---
Assessment and Plan 1.GI bleed 2.hematochezia -HGB 7.2 -continue to monitor H/H and transfuse as needed -no active signs of bleeding overnight or this am -etiology most likely 2/2 recurrent diverticular bleed -colonoscopy 08/22/16 revealed extensive diverticulosis throughout the entire colon but no active bleeding -abd CT showed extensive diverticulosis but no diverticulitis -will advance diet -pt is okay to be d/c per GI standpoint with a f/u appt in clinic in 2 weeks -discussed need for f/u appt with pt, understanding voiced- office information and card given -will sign off Subjective Date of service: 05/09/17 Principal diagnosis: GI bleed Interval history: Patient resting in bed. No acute distress noted. Denies any active signs of bleeding overnight or this am. Objective - Constitutional Vitals: Temp Pulse Resp BP Pulse Ox 98.7 F 77 16 129/57 98 05/09/17 08:00 05/09/17 08:00 05/09/17 08:00 05/09/17 08:00 05/09/17 08:00 General appearance: no acute distress - EENT Eyes: PERRL, EOM intact ENT: hearing intact - Respiratory Respiratory: bilateral: CTA - Cardiovascular Rhythm: regular Heart Sounds: Present: S1 & S2 - Extremities Extremities: No edema - Gastrointestinal General gastrointestinal: Present: soft, non-tender, non-distended, normal bowel sounds - Integumentary Integumentary: Present: warm, dry - Neurologic Neurological: alert and oriented x3 - Labs CBC & Chem 7: 05/09/17 04:26 05/09/17 04:26 Labs: Laboratory Results - last 24 hr 05/08/17 05/08/17 05/08/17 10:39 11:32 18:32 WBC RBC Hgb 7.9 L Hct 26.1 L MCV MCH MCHC RDW Plt Count Sodium Potassium Chloride Carbon Dioxide Anion Gap BUN Creatinine Estimated GFR BUN/Creatinine Ratio Glucose POC Glucose 119 H 81 Calcium 05/09/17 05/09/17 05/09/17 00:43 04:26 04:26 WBC 5.5 RBC 3.21 L Hgb 7.2 L Hct 23.7 L MCV 74 L MCH 23 L MCHC 31 RDW 19.3 H Plt Count 208 Sodium 146 H Potassium 3.3 L Chloride 105.9 Carbon Dioxide 28 Anion Gap 15 BUN 13 Creatinine 0.6 L Estimated GFR > 60 BUN/Creatinine Ratio 22 Glucose 118 H POC Glucose 141 H Calcium 8.2 L 05/09/17 06:21 WBC RBC Hgb Hct MCV MCH MCHC RDW Plt Count Sodium Potassium Chloride Carbon Dioxide Anion Gap BUN Creatinine Estimated GFR BUN/Creatinine Ratio Glucose POC Glucose 126 H Calcium
[2017-05-09] MEDS ORDERED: NACL 0.9% 500 ML 500 ML IV ONE (11:43)
--- NOTE | 2017-05-09 12:05 | Discharge Summary ---
Providers - Providers Date of Admission: 05/07/17 10:30 Attending physician: MITUL KNOTT MD 05/07/17 21:35 Consult to Physician [CONS] Routine Consulting Provider: JUNE JAMES Reason For Exam: Gi Bleed Place consult to:: Notified:: Phone number called:: [phone] Was contact made?: Yes If yes, spoke with:: GABE Time called:: 08:30 Comment:: DIA Primary care physician: [employer] Hospitalization Condition: Stable Disposition: DC-01 TO HOME OR SELFCARE Core Measure Documentation - Palliative Care Palliative Care/ Comfort Measures: Not Applicable Exam - Constitutional Vitals: Temp Pulse Resp BP Pulse Ox 98.7 F 77 16 129/57 98 05/09/17 08:00 05/09/17 08:00 05/09/17 08:00 05/09/17 08:00 05/09/17 08:00 Plan Activity: advance as tolerated, fall precautions Diet: low salt, diabetic Special Instructions: record daily weights, record daily BP diary, record blood sugar diary Follow up with: LACEY SHER MD [Primary Care Provider] - 3-5 Days JUNE JAMES MD [Staff Physician] - 7 Days Forms: Accompanied Note
[2017-05-09 14:53] VITALS: BP 142/90
== END 2017-05-09 16:20 | disposition home or self-care (01) | DRG 379 ==
LOC: ED 00:56 → CC2 10:30
PROVIDERS: ADMIT Internal Medicine; ATTEND Internal Medicine
PROC: 30233N1 Transfusion of Nonautologous Red Blood Cells into Peripheral Vein, Percutaneous Approach (ICD-10-PCS; principal; 2017-05-09)
DX: K57.31 Diverticulosis of large intestine without perforation or abscess with bleeding (principal); I10 Essential (primary) hypertension; E11.9 Type 2 diabetes mellitus without complications; J45.909 Unspecified asthma, uncomplicated; Z91.013 Allergy to seafood; Z79.82 Long term (current) use of aspirin; Z79.899 Other long term (current) drug therapy; Z87.891 Personal history of nicotine dependence; Z90.49 Acquired absence of other specified parts of digestive tract; Z90.710 Acquired absence of both cervix and uterus; Z85.3 Personal history of malignant neoplasm of breast; Z92.3 Personal history of irradiation
CPT/HCPCS: 36415; 74177; 80048; 80053; 82140; 82962; 83036; 83690; 83735; 84484; 85014; 85018; 85025; 85027; 85610; 85730; 86850; 86900; 86901; 86920; 93005; 93010; J7030; J7040; P9016; Q9967